=== PATIENT | male | born 1950 | race Caucasian/White ===

== ENCOUNTER 2018-12-31 01:31 | Outpatient (CLI) | payer MEDICARE, OTHER, SELFPAY ==
[2018-12-31 11:13] LABS: Abs Immature Grans 0.01 k/cumm (0.0-0.09); Absolute Basophil Count 0.02 k/cumm (0.0-0.2); Absolute Eosinophil Count 0.14 k/cumm (0.0-0.7); Absolute Monocyte Count 0.47 k/cumm (0.11-0.7); Absolute Neutrophil Count 2.89 k/cumm (1.2-6.7); Basophils % 0.3; Eosinophils % 2.4; HCT 42.3 % (40.0-50.0); HGB 13.9 g/dL (13.5-17.5); Immature Grans % 0.2; Lymphocytes % 38.4; Mean Corp. HGB Concentration 32.9 g/dL (32.0-36.0); Mean Corpuscular Volume 85.3 fL (80-95); Mean Platelet Volume 10.6 fL (8.0-11.0); Monocytes % 8.2; Neutrophils % 50.5; Platelet Count 199 x1000/uL (130-400); RBC 4.96 m/cumm (4.50-6.00); RBC Distribution Width 13.4 % (11.8-14.1); White Blood Cell Count 5.73 k/cumm (4.4-10.8)
[2018-12-31 11:26] LABS: ALT 43 U/L (12-78); AST 21 U/L (15-37); Albumin 3.9 g/dL (3.4-5.0); Alkaline Phosphatase 70 U/L (46-116); Anion Gap 5.8 mmol/L (3-11); BUN 20 mg/dL (7-18); Bilirubin, Total 0.3 mg/dL (0.2-1.0); CO2 32.2 mmol/L (21.0-32.0); CREATININE 0.88 mg/dL (0.70-1.30); Calcium 8.9 mg/dL (8.5-10.1); Chloride 105 mmol/L (98-107); Cholesterol 111 mg/dL (50-200); Glucose 101 mg/dL (70-100); HDL Cholesterol 52 mg/dL (40-60); LDL CHOLESTEROL 53 mg/dL (<100); Potassium 4.4 mmol/L (3.5-5.1); Sodium 143 mmol/L (136-145); Total Protein 6.7 g/dL (6.4-8.2); Triglyceride 47 mg/dL (30-150)
[2018-12-31 12:10] LABS: ESR 7 MM/HR (1-20)
[2018-12-31 21:09] LABS: T3,Free 3.6 pg/ml (2.8-5.3)
[2019-01-01 13:09] LABS: Albumin 62.7 % (55.8-66.1); Total Protein 6.6 g/dl (6.3-8.2)
== END 2018-12-31 01:51 ==
PROVIDERS: PCP Family Medicine; Visit Provider Family Medicine
DX: D36.9 Benign neoplasm, unspecified site (principal); E78.5 Hyperlipidemia, unspecified; F32.9 Major depressive disorder, single episode, unspecified; G62.9 Polyneuropathy, unspecified; E66.9 Obesity, unspecified; R20.2 Paresthesia of skin
CPT/HCPCS: 36415; 80053; 80061; 83721; 85652; 84165; 84443; 84481; 85025

== ENCOUNTER → 2019-02-15 08:11 | Outpatient (BNVA) | payer MEDICARE, OTHER, SELFPAY | PROVIDERS: PCP Family Medicine; Referring Provider Family Medicine; Visit Provider Psychiatry & Neurology Neurology | DX: G62.9 Polyneuropathy, unspecified (principal); G56.01 Carpal tunnel syndrome, right upper limb; R26.89 Other abnormalities of gait and mobility; G25.0 Essential tremor; R41.3 Other amnesia | CPT/HCPCS: 99214 ==

== ENCOUNTER → 2019-08-09 08:17 | Outpatient (BNVA) | payer MEDICARE, OTHER, SELFPAY | PROVIDERS: PCP Family Medicine; Referring Provider Family Medicine; Visit Provider Psychiatry & Neurology Neurology | DX: G56.01 Carpal tunnel syndrome, right upper limb (principal); G25.0 Essential tremor; G62.9 Polyneuropathy, unspecified; R41.3 Other amnesia | CPT/HCPCS: 99215 ==

== ENCOUNTER 2019-08-23 00:57 | Outpatient (CLI) | payer MEDICARE, OTHER, SELFPAY ==
--- NOTE | 2019-08-23 09:13 | DI.MRI_ITS ---
EXAM: MR BRAIN WO CLINICAL HISTORY: memory loss, R41.3. TECHNIQUE: Multiplanar multisequence MRI was performed. COMPARISON: No exams were available for comparison FINDINGS: The ventricles and sulci are consistent with the patient's age. No intracranial mass, acute midline shift or mass effect is identified. Diffusion-weighted images have a normal appearance. No acute in tracranial hemorrhage is present. The ventricles are intact. The basilar cisterns are patent. Ther e is a normal flow void in the [place]. The visualized paranasal sinuses are clear. IMPRESSION: No acute intracranial process.
== END 2019-08-23 01:17 ==
PROVIDERS: PCP Family Medicine; Visit Provider Psychiatry & Neurology Neurology
DX: R41.3 Other amnesia (principal)
CPT/HCPCS: 70551

== ENCOUNTER → 2019-09-16 09:32 | Outpatient (BNVA) | payer MEDICARE, OTHER, SELFPAY | PROVIDERS: PCP Family Medicine; Referring Provider Family Medicine; Visit Provider Student in an Organized Health Care Education/Training Program | DX: G56.01 Carpal tunnel syndrome, right upper limb (principal) | CPT/HCPCS: 99203; 99214 ==

== ENCOUNTER → 2019-10-19 08:51 | Outpatient (BNVA) | payer MEDICARE, OTHER, SELFPAY | PROVIDERS: PCP Family Medicine; Referring Provider Family Medicine; Visit Provider Psychiatry & Neurology Neurology | DX: G25.0 Essential tremor (principal); G62.9 Polyneuropathy, unspecified; G56.01 Carpal tunnel syndrome, right upper limb; R41.3 Other amnesia | CPT/HCPCS: 99214 ==

== ENCOUNTER 2019-10-27 06:09 | Day surgery (SDC) | payer MEDICARE, OTHER, SELFPAY ==
[2019-10-27 06:20] VITALS: BP 94/51; PULSE 55; TEMP 36.2; O2SAT 98
[2019-10-27] MEDS: Lactated Ringers 1,000 ML 80 ML IV (06:50)
--- NOTE | 2019-10-27 07:08 | W.PREOPHP ---
Date of service: 10/27/19 Time of Service: 07:09 Assessment and Plan Assessment and plan (1) Carpal tunnel syndrome of right wrist: Status: Chronic Assessment and plan: Mr. Longoria is a 69-year-old with recurrent carpal tunnel syndrome of the right side. He has had previous endoscopic release with marginal improvements. He has nerve next improvement carpal tunnel syndrome on the right side. At this point, I do think he would benefit from endoscopic carpal tunnel release. There is a high threshold for opening this given the previous surgery but given the duration of time since the last procedure I expect we should be able do this endoscopically. I did discuss the risk of the procedure to include bleeding, infection, pain, stiffness, damage nerves and vessels, recurrence, continued symptoms, need for repeat procedures peer despite these risks, he elects to proceed. He is in good health and has had no changes to his health history. History of Present Illness History of Present Illness Chief Complaint: Right Carpal Tunnel Syndrome Narrative: Mr. Longoria is a 69-year-old gentleman who has had persistent pain and numbness of his right hand. He has been seen previously in [place] in the over 1999's and had an endoscopic carpal tunnel release. This did not provide significant improvements. The symptoms have actually worsened over the past few years and nerve conduction studies proved carpal tunnel syndrome. He has had a trial of conservative options. He continues to have numbness and tingling of the thumb, index finger, middle finger. He has had no recent health changes. Review of Systems All systems reviewed & are unremarkable except as noted in HPI and below [facility] Medical History Allergic rhinitis Cubital tunnel syndrome on right (Acute 03/16/18) Depressive disorder (Acute 11/09/14) Essential tremor (Acute 01/28/18) Gastric ulcer (Acute 01/31/14) EGD 12/2013 Hyperlipidemia (Acute 12/08/14) Obesity (Acute 11/09/14) Obstructive sleep apnea (Acute 11/09/14) HAS C-PAP Osteoarthritis Peripheral polyneuropathy (Acute 01/28/18) Pilonidal cyst Tubular adenoma (Acute) 02/06/15 DR. MONGE Surgical History Appendectomy B/L ELBOW FX (~04/2013) BACK SURGERY (~2002) Colonoscopy - IV Sedation (02/09/18) 01/2016-Dr. Monge Tubular and tubulovillous adenomas Colonoscopy - MAC (02/09/18) Excision, Pilonidal Cyst (01/08/17) EYE SURGERY LEFT ANKLE SURGERY (~1987) Nasal septoplasty (~2006) Open Carpal Tunnel release (~2007) B/L RIGHT SHOULDER REPAIR (~05/2012) Tonsillectomy Tooth extraction GLAUCOMA LASER Family History Mother , 93 Depression Cancer Father Heart disease Prostate cancer Brother Essential hypertension Maternal Grandfather , 70 Heart disease Paternal Grandfather Heart disease Maternal Grandmother , 60 No problems noted. Paternal Grandmother , 76 Diabetes Brother Substance abuse Depression Social History Smoking/Tobacco Use Status: Former Tobacco Use Quit Date: 10/02/02 Tobacco: How many years used: 35 Quit status: has quit before Second Hand Exposure: Yes Alcohol Intake: former Drug use: Never Substance use type: does not use Caregiver/Support person: No Household members: significant other Housing: house Do you need help understanding health information?: Often current occupation: Retired . Pets and animals: No Sexually active: Yes Do you think of yourself as: straight/heterosexual Current gender identity: male What is your relationship status?: living with partner How often do you talk on the phone with friends or family?: three or more times per week How often do you get together with friends or relatives?: once per week How often do you attend temple or yarsani services?: decline to answer Do you belong to any clubs or organized social groups?: no Panel score (0-1 are the most socially isolated patients): 2 What type of physical activity do you participate in: decline to answer Duration: decline to answer Frequency: decline to answer Ramona/Denominational: Zoroastrianism Special ramona needs: No Seatbelt use: always 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 Do you feel safe at home: Yes Do you feel safe in your relationship?: Yes Meds Home Medications and Allergies Home Medications Medication Instructions Recorded Confirmed Type acetaminophen 500 mg PO Q6H PRN PRN 11/09/14 10/27/19 History docusate sodium 100 mg PO BID PRN tab-cap 11/09/14 10/27/19 History multivitamin 1 ea PO DAILY 11/09/14 10/27/19 History trazodone 300 mg PO HS tab-cap 11/17/14 10/27/19 History bupropion HCl 300 mg PO DAILY tab-cap 10/12/15 10/27/19 History liothyronine 10 mcg PO DAILY tab-cap 10/12/15 10/27/19 History fluticasone propionate 50 mcg NS DAILY PRN spray 10/30/15 10/27/19 History cholecalciferol (vitamin D3) 5,000 unit PO DAILY 12/02/16 10/27/19 History sertraline 100 mg PO DAILY tab-cap 01/28/18 10/27/19 History cromolyn 5.2 mg/spray (4 %) nasal 1 spray IBETH TID #26 ml 12/29/18 10/27/19 Rx spray loratadine 10 mg tablet 10 mg PO DAILY #90 tab 01/13/19 10/27/19 Rx memantine 10 mg tablet 10 mg PO BID #180 tab 10/19/19 10/27/19 Rx simvastatin 20 mg PO HS 10/22/19 10/27/19 History Allergies Allergy/AdvReac Type Severity Reaction Status Date / Time No Known Allergies Allergy Verified 10/27/19 06:16 Exam Const General: cooperative, healthy appearing, comfortable and no acute distress Nutritional Appearance: average body habitus Orientation: alert, awake and oriented x3 Resp Effort & Inspection: normal respiratory effort Auscultation: clear to auscultation bilaterally Cardio Rate: regular rate Rhythm: regular rhythm Extrem Other: Positive Julita's and positive Tinel's as well as a positive Phalen's test. Decrease in station the median nerve distribution. Results Last Vital Signs Temp 36.2 C L 10/27/19 06:20 Pulse 55 L 10/27/19 06:20 BP 94/51 L 10/27/19 06:20 Pulse Ox 98 10/27/19 06:20
--- NOTE | 2019-10-27 07:21 | PDOC.DSDIS_ITS ---
Discharge Plan Disposition Patient Disposition: HOME Condition: Good Discharge Details Reason For Visit: R Carpal Tunnel Syndrome Attending Provider: Sam Horta Primary Care Provider: Sarwat Horton [place] Meds and New Rx's Prescriptions: New hydrocodone-acetaminophen 5-325 mg tablet 1 tab PO Q8H PRN PRN (Reason: pain) Qty: 6 RF: 0 acetaminophen 500 mg tablet 500 mg PO Q6H PRN PRN (Reason: pain) Qty: 40 RF: 3 ibuprofen 600 mg tablet 600 mg PO TID PRNQty: 60 RF: 3 Continued loratadine 10 mg tablet 10 mg PO DAILY Qty: 90 RF: 3 cromolyn [Nasalcrom] 5.2 mg/spray (4 %) spray,non-aerosol 1 spray IBETH TID Qty: 26 RF: 0 memantine 10 mg tablet 10 mg PO BID Qty: 180 RF: 3 docusate sodium 100 MG capsule 100 mg PO BID PRNRF: 0 multivitamin 1 EACH capsule 1 ea PO DAILY RF: 0 trazodone 100 MG tablet 300 mg PO HS RF: 0 liothyronine 5 MCG tablet 10 mcg PO DAILY RF: 0 bupropion HCl 300 MG tablet extended release 24 hr 300 mg PO DAILY RF: 0 cholecalciferol (vitamin D3) 5,000 UNIT capsule 5,000 unit PO DAILY RF: 0 sertraline 50 MG tablet 100 mg PO DAILY RF: 0 simvastatin 20 mg tablet 20 mg PO HS RF: 0 Discontinued acetaminophen 500 MG tablet 500 mg PO Q6H PRN PRNRF: 0 No Action fluticasone propionate 16 GM spray,suspension 50 mcg NS DAILY PRN RF: 0 Discharge Instructions Stand Alone Forms: Rula Garces Tunnel Release Referrals: Sam Horta MD [ [facility] STAFF PHYSICIAN] - Equipment/Supplies: Sling Activity:: Elevate Remove Dressings/Wound Care:: 72 hours Shower/Bathe:: 72 hours Diet:: As Tolerated Discharge Orders Discharge Orders: Discharge Order (Routine); Ordered 10/27/19 Ordered By: Sam Horta DS: Diagnosis Discharge Diagnosis (1) Carpal tunnel syndrome of right wrist: Status: Chronic
[2019-10-27] MEDS: ceFAZolin 2 GM/50 ML BAG IVPB (07:24)
[2019-10-27] MEDS: Sodium Bicarbonate 50 MEQ/50 ML VIAL (07:32)
[2019-10-27 08:25] VITALS: BP 86/57; PULSE 57; RESP 16; TEMP 36.6; O2SAT 95
--- NOTE | 2019-10-28 14:45 | W.PM.OP ---
Date of service: 10/27/19 Time of Service: 08:09 Operative Note Operative Note DATE OF PROCEDURE: 10/27/19 PRE-OP DIAGNOSIS: Recurrent Right Carpal Tunnel Syndrome POST-OP DIAGNOSIS: same PROCEDURE: Right Endoscopic Carpal Tunnel Release SURGEON: Sam Horta ANESTHESIA: GETGwendolyn ESTIMATED BLOOD LOSS: 0 PATHOLOGY: none sent TOURNIQUET TIME: 8 COMPLICATIONS: None Patient was transported to: same day Patient's condition: stable Indications: I have seen Ppio in clinic for symptoms of carpal tunnel syndrome. The numbness, tingling, and pain limited function. Clinical exam findings with nerve conduction tests confirmed the diagnosis of carpal tunnel syndrome. Nonoperative measures such as bracing, time, activity modifications had been tried but disability and pain persisted. I discussed carpal tunnel release with the patient. I reviewed the risks of the procedure to include, but not limited to, bleeding, infection, pain, stiffness, incomplete release, damage to nerves or vessels, persistent numbness, recurrence. Despite these risks, the patient elected to proceed. Findings: There was tightened carpal tunnel. This was dilated and released successfully with the endoscopic with increased space within the tunnel. The antebrachial fascia was released proximally freeing the median nerve at the wrist. Procedure Description: Pipo was greeted in the preoperative holding area where the correct side was identified and marked. The consent was reviewed with the patient and signed. The history and physical was updated. All questions were answered. He was taken back to the operating room. The patient was placed into the supine position on the operating room table with the right arm on an arm board. A nonsterile tourniquet was placed high onto the arm. All bony prominences were well padded. Prophylactic antibiotics in the form of Cefazolin were administered. The right arm was then prepped with Chloraprep and draped in a standard fashion with stockinette and extremity drape. A timeout to confirm correct identity, side and site, procedure, allergies, anesthesia, and medical concerns was performed. The surgical site was marked in the volar wrist creases in line with the radial border of the fourth ray. This area was anesthetized with approximately 6cc of 1% Lidocaine. The limb was then exsanguinated with an Esmarch. The skin was incised with a 15 blade, approximately 1cm. The skin only was cut and the deeper tissue was dissected bluntly with a tenotomy scissor, avoiding passing nerve and venous structures. The fascia was penetrated and opened bluntly. A two-prong skin hook was placed under this proximal fascial edge. A series of hamate finders were used to identify and dilate the carpal tunnel. Synovial elevator was used to free synovial attachments to the underside of the transverse carpal ligament. My thumb was kept in the palm to марина the distal extent of the carpal tunnel and correctly position the hand. The Microaire endoscope was inserted without difficulty and without resistance. Excellent visualization showed horizontally running fibers of the transverse carpal ligament (TCL). The distal extent of the TCL was visualized and the end of the scope palpated with the thumb. The blade was elevated and withdrawn from distal to proximal. The TCL was split into two flaps. The endoscope was reinserted to confirm complete release and any remnant ligament was incised. The scope was withdrawn and the proximal aspect of the carpal tunnel was grossly inspected and appeared release with the median nerve visible. The antebrachial fascia at the level of the wrist was then freed from the overlying skin and then the underlying median nerve with blunt dissection. This was transected longitudinally for about 3cm proximal to the wrist incision. The wound was then irrigated with easy flow of irrigant distally and proximally. The incision was closed with a single 4-0 Nylon suture. The wound was dressed with Xeroform, Gauze, Kerlix and Kole. The tourniquet was deflated with the initial dressing and held with some pressure. Blood flow returned easily to all digits with capillary refill less than 2 seconds. The patient tolerated the procedure well and was returned to the Same Day Surgery area in a stable condition suffering no known complication.
== END 2019-10-27 08:45 | disposition home or self-care (01) ==
PROVIDERS: PCP Family Medicine; Visit Provider Student in an Organized Health Care Education/Training Program
PROC: 01N54ZZ Release Median Nerve, Percutaneous Endoscopic Approach (ICD-10-PCS; CPT 29848; principal; 2019-10-27 07:30)
DX: G56.01 Carpal tunnel syndrome, right upper limb (principal)
CPT/HCPCS: 29848; NC; J0690; J2405; L3650

== ENCOUNTER → 2019-11-05 10:49 | Outpatient (BNVA) | payer MEDICARE, OTHER, SELFPAY | PROVIDERS: PCP Family Medicine; Referring Provider Family Medicine; Visit Provider Student in an Organized Health Care Education/Training Program | DX: Z47.89 Encounter for other orthopedic aftercare (principal); G56.01 Carpal tunnel syndrome, right upper limb ==

== ENCOUNTER 2020-02-11 09:42 | Outpatient (CLI) | payer MEDICARE, OTHER, SELFPAY ==
--- NOTE | 2020-02-11 09:15 | DI.RAD_ITS ---
EXAM: XR HIP LT COMPLETE AP PELVIS CLINICAL HISTORY: left hip pain. TECHNIQUE: 2D digital imaging was performed. COMPARISON: No exams were available for comparison FINDINGS: The left hip is well maintained. No significant arthritic changes are present. Right hip is unremar kable. Mild degenerative changes are seen at lumbosacral junction. The sacroiliac joints and symphy sis pubis are unremarkable. The bones are normally mineralized. The soft tissues are unremarkable. IMPRESSION: Unremarkable radiographs of the left hip. DATA REPOSITORY: RADIATION DOSE DELIVERED:
== END 2020-02-11 10:02 ==
PROVIDERS: PCP Family Medicine; Referring Provider Family Medicine; Visit Provider Student in an Organized Health Care Education/Training Program
DX: M25.552 Pain in left hip (principal); M70.62 Trochanteric bursitis, left hip; G56.01 Carpal tunnel syndrome, right upper limb; M25.511 Pain in right shoulder; M75.81 Other shoulder lesions, right shoulder
CPT/HCPCS: 99213; 99214; 73502

== ENCOUNTER → 2020-02-16 08:13 | Outpatient (BNVA) | payer MEDICARE, OTHER, SELFPAY | PROVIDERS: PCP Family Medicine; Referring Provider Family Medicine; Visit Provider Psychiatry & Neurology Neurology | DX: G25.0 Essential tremor (principal); G62.9 Polyneuropathy, unspecified; R41.3 Other amnesia | CPT/HCPCS: 99213 ==

== ENCOUNTER 2020-03-08 03:23 | Outpatient (CLI) | payer MEDICARE, OTHER, SELFPAY ==
[2020-03-08 13:02] LABS: ALT 33 U/L (16-63); AST 22 U/L (15-37); Albumin 3.8 g/dL (3.4-5.0); Alkaline Phosphatase 67 U/L (46-116); Anion Gap 7.3 mmol/L (3-11); BUN 20 mg/dL (7-18); Bilirubin, Total 0.4 mg/dL (0.2-1.0); CO2 29.7 mmol/L (21.0-32.0); CREATININE 0.94 mg/dL (0.70-1.30); Calcium 8.9 mg/dL (8.5-10.1); Calculated LDL 69 mg/dL (<100); Chloride 107 mmol/L (98-107); Cholesterol 138 mg/dL (<200); Glucose 103 mg/dL (74-106); HDL Cholesterol 52 mg/dL (40-60); Potassium 4.2 mmol/L (3.5-5.1); Sodium 144 mmol/L (136-145); TSH (W/Ref FT4) 1.49 uIU/mL (0.36-3.74); Total Protein 6.5 g/dL (6.4-8.2); Triglyceride 86 mg/dL (<150)
[2020-03-09 09:06] LABS: PSA, Screening 0.6 ng/mL (0.0-6.5)
== END 2020-03-08 03:43 ==
PROVIDERS: PCP Family Medicine; Visit Provider Family Medicine
DX: E78.5 Hyperlipidemia, unspecified (principal); R53.83 Other fatigue; F32.9 Major depressive disorder, single episode, unspecified; Z12.5 Encounter for screening for malignant neoplasm of prostate; Z80.42 Family history of malignant neoplasm of prostate
CPT/HCPCS: 36415; 80053; 80061; 84153; 84443

== ENCOUNTER 2020-04-07 01:38 | Outpatient (CLI) | payer MEDICARE, OTHER, SELFPAY ==
[2020-04-10 09:24] LABS: PSA, Screening 0.5 ng/mL (0.0-6.5)
== END 2020-04-07 01:58 ==
PROVIDERS: PCP Family Medicine; Visit Provider Family Medicine
DX: Z12.5 Encounter for screening for malignant neoplasm of prostate (principal)
CPT/HCPCS: 36415; 84153

== ENCOUNTER → 2020-08-16 08:09 | Outpatient (BNVA) | payer MEDICARE, OTHER, SELFPAY | PROVIDERS: PCP Family Medicine; Referring Provider Family Medicine; Visit Provider Psychiatry & Neurology Neurology | DX: R41.3 Other amnesia (principal); G25.0 Essential tremor; G62.9 Polyneuropathy, unspecified | CPT/HCPCS: 99213; 99441 ==

== ENCOUNTER → 2021-02-15 08:33 | Outpatient (BNVA) | payer MEDICARE, OTHER, SELFPAY | PROVIDERS: PCP Nurse Practitioner Family; Referring Provider Family Medicine; Visit Provider Psychiatry & Neurology Neurology | DX: R41.3 Other amnesia (principal); G25.0 Essential tremor; G62.9 Polyneuropathy, unspecified; G47.33 Obstructive sleep apnea (adult) (pediatric) | CPT/HCPCS: 99214 ==

== ENCOUNTER 2021-03-20 08:42 | Outpatient (CLI) | payer MEDICARE, OTHER, SELFPAY ==
[2021-03-20 13:05] LABS: Hemoglobin A1C 5.6 % (<5.7)
[2021-03-20 13:10] LABS: ALT 43 U/L (16-63); AST 28 U/L (15-37); Alkaline Phosphatase 70 U/L (46-116); Anion Gap 8.4 mmol/L (3-11); BUN 24 mg/dL (7-18); Bilirubin, Total 0.5 mg/dL (0.2-1.0); CO2 30.6 mmol/L (21.0-32.0); CREATININE 1.1 mg/dL (0.70-1.30); Calcium 9.4 mg/dL (8.5-10.1); Calculated LDL 76 mg/dL (<100); Chloride 106 mmol/L (98-107); Cholesterol 149 mg/dL (<200); Glucose 102 mg/dL (74-106); HDL Cholesterol 44 mg/dL (40-60); Potassium 4.8 mmol/L (3.5-5.1); Sodium 145 mmol/L (136-145); Total Protein 6.7 g/dL (6.4-8.2); Triglyceride 146 mg/dL (<150)
[2021-03-20 22:43] LABS: PSA, Screening 1.2 ng/mL (0.0-6.5)
== END 2021-03-20 08:43 | disposition home or self-care (01) ==
LOC: LOS 08:48
PROVIDERS: Family Medicine; PCP Nurse Practitioner Family; Visit Provider Nurse Practitioner Family
DX: R73.9 Hyperglycemia, unspecified (principal); E66.9 Obesity, unspecified; Z12.5 Encounter for screening for malignant neoplasm of prostate; Z80.42 Family history of malignant neoplasm of prostate
CPT/HCPCS: 36415; 80053; 80061; 84153; 83036

== ENCOUNTER → 2021-03-23 09:00 | Outpatient (BNVA) | payer MEDICARE, OTHER, SELFPAY | PROVIDERS: PCP Nurse Practitioner Family; Referring Provider Nurse Practitioner Family; Visit Provider Student in an Organized Health Care Education/Training Program | DX: M70.62 Trochanteric bursitis, left hip (principal); M25.552 Pain in left hip | CPT/HCPCS: 99213 ==

== ENCOUNTER 2021-04-11 02:17 | Outpatient (CLI) | payer MEDICARE, OTHER, SELFPAY ==
--- NOTE | 2021-04-11 06:45 | DI.MRI_ITS ---
Exam(s) MR LOWER JOINT LT WO EXAM: MR LOWER JOINT LT WO CLINICAL HISTORY: LT HIP PAIN, TROCHANTERIC BURSITIS, M25.552,M70.62 TECHNIQUE: Multiplanar multisequence MRI of Pelvis was performed COMPARISON: CR XR HIP LT COMPLETE AP PELVIS from 02/11/2020 CR XR HIP LT COMPLETE AP PELVIS from 02/11/2020 FINDINGS: Bones: There is no fracture or contusion pattern. No significant joint effusion is present. No bone marrow edema is seen. The SI joints and symphysis pubis are well maintained. Musculotendinous structures: Musculotendinous structures demonstrate no abnormality. Intrapelvic str uctures demonstrate no significant abnormality. IMPRESSION: Normal MRI examination the pelvis and left hip. No evidence of trochanteric bursitis.. DATA REPOSITORY:
== END 2021-04-11 02:37 ==
PROVIDERS: PCP Nurse Practitioner Family; Visit Provider Student in an Organized Health Care Education/Training Program
DX: M25.552 Pain in left hip (principal)
CPT/HCPCS: 73721

== ENCOUNTER → 2021-04-12 12:57 | Outpatient (BNVA) | payer MEDICARE, OTHER, SELFPAY | PROVIDERS: PCP Nurse Practitioner Family; Referring Provider Nurse Practitioner Family | DX: Z01.818 Encounter for other preprocedural examination (principal); M76.892 Other specified enthesopathies of left lower limb, excluding foot; M70.62 Trochanteric bursitis, left hip ==

== ENCOUNTER 2021-04-16 02:46 | Outpatient (CLI) | payer MEDICARE, OTHER, SELFPAY ==
[2021-04-16 12:39] LABS: Source Nasal/Nares
[2021-04-16 15:35] LABS: COVID-19 PCR Negative (Negative)
== END 2021-04-16 02:47 | disposition home or self-care (01) ==
LOC: LBO 02:47
PROVIDERS: PCP Nurse Practitioner Family; Visit Provider Student in an Organized Health Care Education/Training Program
DX: Z20.822 Contact with and (suspected) exposure to COVID-19 (principal); Z01.818 Encounter for other preprocedural examination
CPT/HCPCS: 87635

== ENCOUNTER 2021-04-17 08:43 | Day surgery (SDC) | payer MEDICARE, OTHER, SELFPAY ==
[2021-04-17 08:56] VITALS: BP 127/52; PULSE 65; RESP 16; TEMP 36.4; O2SAT 95
[2021-04-17] MEDS: Lactated Ringers 1,000 ML 80 ML IV (09:28)
[2021-04-17] MEDS: Acetaminophen 500 MG TAB 1000 MG PO (09:29)
[2021-04-17] MEDS: Celecoxib 200 MG CAP 400 MG PO (09:29)
--- NOTE | 2021-04-17 09:29 | W.ANESPRE ---
General Info Date of Service Date Performed: 04/17/21 Height: 6 ft 1 in Weight: 118.6 kg Body Mass Index (BMI): 34.4 Surgical Procedure: Operation Date: 04/17/21 10:55 Proposed Procedures Side Surgeon p Left hip debridement with abductor tendon repair Left Sam Horta MD Meds Allergies and Home Medications Allergies Allergy/AdvReac Type Severity Reaction Status Date / Time No Known Allergies Allergy Verified 04/17/21 09:08 Home Medication Medication Instructions Recorded docusate sodium 100 mg PO BID PRN tab-cap 11/09/14 multivitamin 1 ea PO DAILY 11/09/14 trazodone 300 mg PO HS tab-cap 11/17/14 bupropion HCl 300 mg PO DAILY tab-cap 10/12/15 liothyronine 10 mcg PO DAILY tab-cap 10/12/15 fluticasone propionate 50 mcg NS DAILY PRN spray 10/30/15 sertraline 100 mg PO DAILY tab-cap 01/28/18 simvastatin 20 mg PO HS 10/22/19 memantine 10 mg tablet 10 mg PO BID #180 tab 12/11/20 fexofenadine 180 mg tablet 180 mg PO DAILY 03/12/21 meloxicam 15 mg PO DAILY 04/13/21 acetaminophen 1,000 mg PO Q8H PRN PRN #90 cap 04/17/21 ibuprofen 600 mg PO TID PRN #30 tab 04/17/21 oxycodone 5 mg PO Q6H PRN #8 tab MDD 15mg 04/17/21 Current Visit Medications: Current Medications Generic Name Dose Route Start Last Admin Trade Name Cedricq PRN Reason Stop Dose Admin Acetaminophen 1,000 mg 04/17/21 06:00 Acetaminophen 500 Mg Tab PO 04/17/21 16:00 PREOP KEVEN Celecoxib 400 mg 04/17/21 06:00 Celecoxib 200 Mg Cap PO 04/17/21 16:00 PREOP KEVEN Ringer's Solution 1,000 mls @ 80 mls/hr 04/17/21 06:00 04/17/21 09:28 IV 05/16/21 23:59 80 mls/hr INFUSION KEVEN Administration Cefazolin Sodium 3,000 mg/ 100 mls @ 200 mls/hr 04/17/21 06:00 Sodium Chloride IVPB 04/17/21 16:00 PREOP KEVEN Tranexamic Acid 1,000 mg/ 60 mls @ 360 mls/hr 04/17/21 06:00 Sodium Chloride IV 04/17/21 16:00 PREOP KEVEN IV Miscellaneous Supplies 1 each 04/17/21 06:00 Iv Access IV 05/16/21 23:59 DIRECTED KEVEN Sodium Chloride 0 ml 04/17/21 06:00 Normal Saline Flush 10 Ml Syr IV 05/16/21 23:59 PRN PRN Sodium Chloride 0 ml 04/17/21 06:00 Normal Saline 10 Ml Vial IJ 05/16/21 23:59 DIRECTED PRN Sterile Water 0 ml 04/17/21 06:00 Water,Injection,Sterile 10 Ml Vial IJ 05/16/21 23:59 DIRECTED PRN PFSH Active Problems Active Problems: Problem Status Onset Code Tendinitis involving left hip abductors M76.892 Glucose intolerance E74.39 Right rotator cuff tendonitis M75.81 Memory loss R41.3 Allergic rhinitis 11/09/14 J30.9 Cubital tunnel syndrome on right 03/16/18 G56.21 Depressive disorder 11/09/14 F32.9 Essential tremor 01/28/18 G25.0 Gastric ulcer 01/31/14 K25.9 Hyperlipidemia 12/08/14 E78.5 Left hip pain 11/22/15 M25.552 Obesity 11/09/14 E66.9 Obstructive sleep apnea 11/09/14 G47.33 Orthostatic hypotension 01/28/18 I95.1 Peripheral polyneuropathy 01/28/18 G62.9 Tingling of right upper extremity 01/28/18 R20.2 Trochanteric bursitis, left hip 06/17/16 M70.62 Trochanteric bursitis, right hip 06/17/16 M70.61 Tubular adenoma D36.9 Medical History Medical History Allergic rhinitis Cubital tunnel syndrome on right (03/16/18) Depressive disorder (11/09/14) Essential tremor (01/28/18) Gastric ulcer (01/31/14) EGD 12/2013 Glucose intolerance Hyperlipidemia (12/08/14) Obesity (11/09/14) Obstructive sleep apnea (11/09/14) HAS C-PAP Osteoarthritis Peripheral polyneuropathy (01/28/18) Pilonidal cyst Right rotator cuff tendonitis Tubular adenoma 02/06/15 DR. MONGE Surgical History Surgical History Appendectomy B/L ELBOW FX (~04/2013) BACK SURGERY (~2002) Colonoscopy - IV Sedation (02/09/18) 01/2016-Dr. Monge Tubular and tubulovillous adenomas Colonoscopy - MAC (02/09/18) Excision, Pilonidal Cyst (01/08/17) EYE SURGERY LEFT ANKLE SURGERY (~1987) Nasal septoplasty (~2006) Open Carpal Tunnel release (~2007) B/L RIGHT SHOULDER REPAIR (~05/2012) Tonsillectomy Tooth extraction GLAUCOMA LASER Tobacco Smoking/Tobacco Use Status: Former Tobacco Use Tobacco: How many years used: 35 Passive smoking exposure: Yes Second hand exposure: Yes Alcohol Alcohol Intake: former Substance Use Substance use: Never Substance use type: does not use Vital Signs and Lab Results Vital Signs Most Recent Vital Signs in EMR: Most Recent Vital Signs Temp Pulse Resp BP Pulse Ox 36.4 C L 65 16 127/52 L 95 04/17/21 08:56 04/17/21 08:56 04/17/21 08:56 04/17/21 08:56 04/17/21 08:56 Lab Results Blood Type / Crossmatch: No Data to Display Complete Blood Count: No Data to Display Complete Metabolic Panel: Sodium Level 145 mmol/L (136-145) 03/20/21 08:50 03/20/21 Potassium Level 4.8 mmol/L (3.5-5.1) 03/20/21 08:50 03/20/21 Chloride Level 106 mmol/L (98-107) 03/20/21 08:50 03/20/21 Carbon Dioxide Level 30.6 mmol/L (21.0-32.0) 03/20/21 08:50 03/20/21 Blood Urea Nitrogen 24 mg/dL (7-18) H 03/20/21 08:50 03/20/21 Creatinine 1.1 mg/dL (0.70-1.30) 03/20/21 08:50 03/20/21 Estimated GFR/1.73 m2 >= 60.00 (mL/min/1.73m2) 03/20/21 08:50 03/20/21 Calcium Level 9.4 mg/dL (8.5-10.1) 03/20/21 08:50 03/20/21 Albumin 4.0 g/dL (3.4-5.0) 03/20/21 08:50 03/20/21 Glucose Level 102 mg/dL (74-106) 03/20/21 08:50 03/20/21 Hemoglobin A1c 5.6 % (<5.7) 03/20/21 09:00 03/20/21 Liver Function Panel: Alanine Aminotransferase (ALT/SGPT) 43 U/L (16-63) 03/20/21 08:50 03/20/21 Aspartate Amino Transf (AST/SGOT) 28 U/L (15-37) 03/20/21 08:50 03/20/21 Coagulation Panel: No Data to Display Cardiac Panel: No Data to Display Arterial Blood Gas: No Data to Display Venous Blood Gas: No Data to Display Pancreas Panel: No Data to Display Thyroid Panel: No Data to Display Infectious Disease: Coronavirus (COVID-19)(PCR) Negative (Negative) 04/16/21 09:10 04/16/21 Coronavirus 2019 Source Nasal/Nares 04/16/21 09:10 04/16/21 Blood Cultures: No Data to Display Toxicology Panel: No Data to Display Anesthesia Assessment and Plan Anesthesia History Personal History: No History of Anesthesia Complications Family History: No Family History of Anesthesia Complications Exercise Tolerance Exercise Tolerance: Metabolic Equivalents>4 Pertinent Negatives Pertinent Negatives: No Symptoms of GERD, No Major Cardiovascular Symptoms or Complaints, No Major Pulmonary Symptoms or Complaints (Former smoker ) and No History of CVA/TIA Cardiac & Pulmonary Exam Cardiac Exam: Normal S1/S2 Heart Sounds Pulmonary Exam: Clear Bilateral Breath Sounds Airway Exam Known Difficult Airway: No Mallampati Class: 1 Mouth Opening: Normal (> 3cm) Thyromental Distance: Greater than 3 cm Neck Range of Motion: Full ROM Neck Circumference: Normal Teeth Condition: Removable Dentures/Plates Upper and Removable Dentures/Plates Lower ASA Classification ASA Score: ASA 2 Emergency Case?: No NPO Status NPO Status: NPO Clears >2 hours, Solids >8 hours Anesthesia Plan Resuscitation Status: Full Code Anesthesia Technique: Spinal Anesthesia Airway Planned: Natural Airway Monitors Used: Standard Monitors
--- NOTE | 2021-04-17 10:05 | W.PM.DSUDISC ---
Discharge Plan Disposition Patient Disposition: HOME Condition: Good Discharge Details Reason For Visit: IT band release Attending Provider: Sam Horta Primary Care Provider: Saurabh Tejeda Home Meds and New Rx's Prescriptions: New ibuprofen 600 mg tablet 600 mg PO TID PRN (Reason: pain) Qty: 30 RF: 0 acetaminophen 500 mg capsule 1,000 mg PO Q8H PRN PRNQty: 90 RF: 0 oxycodone 5 mg tablet 5 mg PO Q6H MDD 15mg PRN (Reason: pain) Qty: 8 RF: 0 Continued fexofenadine [Allergy Relief (fexofenadine)] 180 mg tablet 180 mg PO DAILY RF: 0 docusate sodium 100 MG capsule 100 mg PO BID PRNRF: 0 multivitamin 1 EACH capsule 1 ea PO DAILY RF: 0 trazodone 100 MG tablet 300 mg PO HS RF: 0 liothyronine 5 MCG tablet 10 mcg PO DAILY RF: 0 bupropion HCl 300 MG tablet extended release 24 hr 300 mg PO DAILY RF: 0 fluticasone propionate 16 GM spray,suspension 50 mcg NS DAILY PRN RF: 0 sertraline 50 MG tablet 100 mg PO DAILY RF: 0 memantine 10 mg tablet 10 mg PO BID Qty: 180 RF: 3 simvastatin 20 mg tablet 20 mg PO HS RF: 0 meloxicam 15 mg Tablet 15 mg PO DAILY RF: 0 Discontinued acetaminophen 500 mg tablet 500 mg PO Q6H PRN PRN (Reason: pain) Qty: 40 RF: 3 ibuprofen 600 mg tablet 600 mg PO TID PRNQty: 60 RF: 3 Discharge Instructions Additional Instructions: Bubba Butta Discharge Instructions Activity: You may move and walk as tolerated but always use two crutches or a walker until instructed otherwise. You should try to take short walks a few times a day. You have no restrictions on movement or positioning, but do not try to force what you do. You will find some stiffness and weakness. Do not try to strengthen this too early, continue to practice walking. - Outpatient physical therapy can be helpful to help return you to a normal gait and improve your flexibility and strength. This can start around 2 weeks. For some patients, it?s not necessary. Usually this is determined at the time of discharge or at the first post-operative visit. Dressing: Keep the surgical dressing in place for at least one week. After the first week it may be removed and replace with light gauze and tape or nothing. It may get wet after 3 days but avoid soaking the dressing. If it gets wet, just lightly pat dry. Medications: - You should take Tylenol and an anti-inflammatory ibuprofen as your primary pain control medications - You have been prescribed a stronger pain medication oxycodone for breakthrough pain, take as needed as prescribed. - If you have constipation you should take Colace or Miralax (both [id number]). It takes most people 3-4 days to have a bowel movement. Follow-up: 2 weeks Referrals: Sam Horta MD [ [facility] STAFF PHYSICIAN] - Equipment/Supplies: Partial Weight Bearing Crutches Activity:: Activity as Tolerated Shower/Bathe:: 72 hours Diet:: As Tolerated Discharge Orders Discharge Orders: Discharge Order (Routine); Ordered 04/17/21 Ordered By: Archie Cruz DS: Diagnosis Discharge Diagnosis (1) Trochanteric bursitis, left hip: Status: Acute
[2021-04-17 10:25] VITALS: BMI 34.4
[2021-04-17] MEDS: ceFAZolin 3,000 MG in Normal Saline 100 ML 200 MG IVPB (10:55)
[2021-04-17] MEDS: Bupivacaine 0.25% Pres-Free 30 ML VIAL (11:16)
[2021-04-17] MEDS: Ketorolac 30 MG/ML VIAL (11:17)
[2021-04-17 11:47] VITALS: BP 88/55; PULSE 56; RESP 12; TEMP 36.1; O2SAT 95
[2021-04-17 11:52] VITALS: BP 97/57; PULSE 55; RESP 17; TEMP 36.1; O2SAT 95
[2021-04-17 11:57] VITALS: BP 101/58; PULSE 52; RESP 14; TEMP 36.1; O2SAT 95
[2021-04-17 12:12] VITALS: BP 103/65; PULSE 56; RESP 12; TEMP 36.1; O2SAT 94
[2021-04-17 13:13] VITALS: BP 119/72; PULSE 58; RESP 18; TEMP 36.3; O2SAT 97
--- NOTE | 2021-04-17 14:06 | W.PM.OP ---
Date of service: 04/17/21 Time of Service: 12:06 Operative Note Operative Note DATE OF PROCEDURE: 04/17/21 PRE-OP DIAGNOSIS: Recalcitrant Trochanteric Bursitis, LEFT POST-OP DIAGNOSIS: same PROCEDURE: Open Debridement/Excision of LEFT Trochanteric Bursa and Iliotibial Band Lengthening SURGEON: Sam Horta RESIDENTIAL ROOFER: Archie Cruz ANESTHESIA TYPE: Spinal Refer to Anesthesia Record ESTIMATED BLOOD LOSS: 50 PATHOLOGY: none sent TOURNIQUET TIME: 0 COMPLICATIONS: None Patient was transported to: PACU Patient's condition: stable Indications: Ezio is a 70 year old who I have seen for recurrent symptoms of lateral hip pain. A diagnosis of trochanteric bursitis was made. Conservative treatment options were employed first. However, pain continued. After failure of conservative treatment options, I recommended surgical intervention. I reviewed the technical details of the surgery. I reviewed the risk of the surgery to include bleeding, infection, pain, stiffness, damage to nerves and vessels, damage to muscles and tendons, blood clot. Despite these risks, the patient desired to proceed. Findings: The iliotibial band was significantly tight. The bursa was inflamed and excised and debrided. Iliotibial band was lengthened with a cruciate style tenotomy. Procedure Description: Ezio was greeted in the preoperative holding area. The identity was confirmed with the correct site and side. The consent was reviewed with the patient and signed. History and physical was updated. The patient was taken back to the operating room. A general anesthetic was administered. The patient was then positioned into the right lateral decubitus position for access to the left hip. All bony prominences well-padded. The left hip was prepped with ChloraPrep and draped in a standard fashion. Prophylactic antibiotics in the form of Cefazolin were administered. A timeout was performed for safe surgery. An approximately 10 cm incision was made overlying the posterior lateral hip. This was centered over the vastus ridge extending just proximal to the tip of the greater trochanter. The skin was incised sharply. Bleeding was stopped with electrocautery. The iliotibial band was identified and cleared for better visualization. It was noted to be quite taut against the lateral femur. The iliotibial band was then incised longitudinally extending into the gluteus fascia and extending distally along the IT band. This was split bluntly and a Charnley retractor was inserted. We had excellent visualization of the lateral femur and the trochanteric bursa. There was notable bursitis with an enlarged and inflamed bursa. This was excised sharply with electrocautery and remnants debrided with a rongeur. Once this was fully removed we had excellent visualization of the insertion of the abductor tendons. They were inspected both visually and by palpation on both the lateral and medial surfaces. There is no notable tearing of the abductor tendons. The deep structures were then thoroughly irrigated. The deep tissues were injected with a mixture of 0.5% bupivacaine and 20 cc of Exparel. The iliotibial band was then closed with a #1 Vicryl. Once the longitudinal split was closed completely the point of maximal tightness was incised transversely. This was done between sutures allowing for some the longitudinal split open as well creating a anu shaped tenotomy for lengthening of about 1-1.5cm. Once again the deep tissues and iliotibial band were injected with the remainder of the bupivacaine Exparel cocktail. The wound was thoroughly irrigated. The deep tissues were closed with 0 Vicryl followed by 2-0 Vicryl. The skin was closed with a 4-0 Monocryl in a running subcuticular fashion which was reinforced with skin glue and Steri-Strips. The wound was dressed with Mepilex silver dressing. At the end of the case all counts are correct. The patient was transitioned back into the supine position. There were no notable complications. The patient was transferred to the PACU in stable condition.
--- NOTE | 2021-04-18 14:36 | W.ANESPOSTOP ---
Postoperative Evaluation Date, Time and Location Date Performed: 04/18/21 Time Performed: 14:36 Patient Location: PACU Vital Signs Most Recent Imported Vital Signs: Most Recent Vital Signs Temp Pulse Resp BP Pulse Ox 36.3 C L 58 L 18 119/72 97 04/17/21 13:13 04/17/21 13:13 04/17/21 13:13 04/17/21 13:13 04/17/21 13:13 Pain Score Most Recent Pain Score: Most Recent Pain Score Pain Level 0 04/17/21 13:13 Assessment Mental Status: Awake (Alert & Oriented to Patient Baseline) Airway and Respiratory Function: Patent airway with normal (patient baseline) respiratory exam Cardiovascular Function: Hemodynamically Stable Hydration Status: Adequately Hydrated Nausea & Vomiting: No Nausea or Vomiting Pain: Pt. Denies Any Pain Peripheral Nerve Block: Patient did not receive a nerve block
== END 2021-04-17 13:58 | disposition home or self-care (01) ==
PROVIDERS: PCP Nurse Practitioner Family; Visit Provider Student in an Organized Health Care Education/Training Program
PROC: (CPT 27025; principal; 2021-04-17 10:45)
DX: M70.62 Trochanteric bursitis, left hip (principal); M76.32 Iliotibial band syndrome, left leg
CPT/HCPCS: 27025; 27062; J0690; J1885; J2001; J2250; J2405

== ENCOUNTER → 2021-04-30 09:33 | Outpatient (BNVA) | payer MEDICARE, OTHER, SELFPAY | PROVIDERS: PCP Nurse Practitioner Family; Referring Provider Nurse Practitioner Family | DX: Z47.89 Encounter for other orthopedic aftercare (principal); M70.62 Trochanteric bursitis, left hip ==

== ENCOUNTER → 2021-05-28 09:30 | Outpatient (BNVA) | payer MEDICARE, OTHER, SELFPAY | PROVIDERS: PCP Nurse Practitioner Family; Referring Provider Nurse Practitioner Family | DX: Z47.89 Encounter for other orthopedic aftercare (principal) ==

== ENCOUNTER → 2021-10-04 08:49 | Outpatient (BNVA) | payer MEDICARE, OTHER, SELFPAY | PROVIDERS: PCP Nurse Practitioner Family; Referring Provider Nurse Practitioner Family; Visit Provider Physical Therapy Assistant | DX: Z12.11 Encounter for screening for malignant neoplasm of colon (principal); Z86.010 Personal history of colon polyps ==

== ENCOUNTER 2021-10-12 02:07 | Outpatient (CLI) | payer MEDICARE, OTHER, SELFPAY ==
[2021-10-12 10:18] LABS: Source Nasal/Nares
[2021-10-12 13:44] LABS: COVID-19 PCR Negative (Negative)
== END 2021-10-12 02:08 | disposition home or self-care (01) ==
LOC: LBO 02:07
PROVIDERS: PCP Nurse Practitioner Family; Visit Provider Surgery
DX: Z20.822 Contact with and (suspected) exposure to COVID-19 (principal); Z01.818 Encounter for other preprocedural examination
CPT/HCPCS: 87635

== ENCOUNTER 2021-10-15 08:26 | Day surgery (SDC) | payer MEDICARE, OTHER, SELFPAY ==
--- NOTE | 2021-10-15 06:49 | W.COLOREPORT ---
Colonoscopy Report Date of procedure: 10/15/21 Pre-op diagnosis general: Colon Cancer Screening/ Hx of colon polyps Post-op diagnosis procedure note: other (transverse polyp, sigmoid diverticulosis) Procedure: Colonoscopy with polypectomy Surgeon: Tamica Varela Anesthesia Type: General:No Airway (Sai Velazco CRNA) Complications: None Disposition: same day Indications: The patient is here for Colonoscopy pre-op. His last screening was in 2018, which was unremarkable, with recommended f/u in 3 yrs secondary to history of pre-cancerous polyps.? He has no family history of colon cancer. He has not had any bowel habit changes. -Discussed colonoscopy bowel prep as well as the procedure. Discussed possible complications of the procedure to include bleeding, pain, perforation, missed small lesion/polyp, sore throat, aspiration and adverse reaction to the medications. Questions were answered to patient?s satisfaction. No guarantees were implied or given.? Prep: Miralax/Dulcolax Procedure Start Time: 10:30 Procedure End Time: 11:08 Findings: One sessile polyp Mild diverticulosis Procedure Description: After informed consent was obtained the patient was taken to the procedure room and placed in a left decubitous position. Monitors were applied and a time out was done. The patients name, date of , procedure, allergies to medications and metal in their body was reviewed. The patient was then sedated. Once sedated and comfortable a rectal exam was done. External exam was normal. Internal exam revealed a normal sphincter tone and no palpable masses. The prostate felt smooth and slightly enlarged. The scope was then introduced and retro-flexed. No internal hemorrhoids, polyps or masses were identified on retro-flexion. The scope was then advanced to the cecum with some difficulty. The ileocecal vlave and appendiceal orifice were identified. The prep was marginal. The scope was then slowly retracted over 19 minutes back into the rectum. Polyps were removed with cold forceps in the transverse colon. There was mild sigmoid diverticulosis noted. The scope was removed and the patient was woken up and taken back to Same day surgery in stable condition. The patient tolerated the procedure well and there were no immediate complications. Follow up: The patient should follow up in 3-5 years unless they develop changes in bowel habits or other new gastrointestinal complaints.
--- NOTE | 2021-10-15 06:50 | W.PM.DSUDISC ---
Discharge Plan Disposition Patient Disposition: HOME Condition: Good Discharge Details Reason For Visit: Colonoscopy Attending Provider: Tamica Varela Primary Care Provider: Saurabh Tejeda Home Meds and New Rx's Prescriptions: Continued fexofenadine [Allergy Relief (fexofenadine)] 180 mg tablet 180 mg PO DAILY 0RF docusate sodium 100 MG capsule 100 mg PO BID PRN0RF multivitamin 1 EACH capsule 1 ea PO DAILY 0RF trazodone 100 MG tablet 300 mg PO HS 0RF liothyronine 5 MCG tablet 10 mcg PO DAILY 0RF Label Comments: 12/02/16: Pt takes 2 tabs daily. -BR bupropion HCl 300 MG tablet extended release 24 hr 300 mg PO DAILY 0RF fluticasone propionate 16 GM spray,suspension 50 mcg NS DAILY PRN 0RF sertraline 50 MG tablet 100 mg PO DAILY 0RF memantine 10 mg tablet 10 mg PO BID Qty: 180 3RF simvastatin 20 mg tablet 20 mg PO HS 0RF meloxicam 15 mg Tablet 15 mg PO DAILY 0RF ibuprofen 600 mg tablet 600 mg PO TID PRN (Reason: pain) Qty: 30 0RF acetaminophen 500 mg capsule 1,000 mg PO Q8H PRN PRNQty: 90 0RF Discontinued bisacodyl [Dulcolax (bisacodyl)] 5 mg tablet,delayed release (DR/EC) 5 mg PO ONCE Qty: 4 0RF Rx Instructions: Take according to provider's instructions for colonoscopy prep. polyethylene glycol 3350 17 gram/dose powder 17 g PO ONCE Qty: 238 0RF Rx Instructions: To be taken as directed by prescriber's office for colonoscopy prep. Discharge Instructions Instructions: Diverticulosis (DC) Additional Instructions: Findings: 1 polyp diverticulosis Follow up: 3-5 years Please call if you develop: fevers >101.5 Nausea or Vomiting Abdominal pain that is not transient Rectal bleeding that is more then a tbsp A hard abdomen and inability to pass gas DAY SURGERY UNIT POST ENDOSCOPY INSTRUCTIONS Instructions for everyone who is given Anesthesia: For your safety, please do the following for the next 24 Hours: a. Do not drive or operate dangerous equipment b. Do not drink alcohol beverages or use any recreational drugs for the first 24 hours or while taking pain medications. The medications in your body may have a reaction that can be dangerous. c. Do not make any important decisions or sign any important papers 1. Generally there are no restrictions on your activity after a day or so has gone by, but you may feel a bit fatigued for a few days. 2. After you arrive home you may have a light meal and return to a normal diet as you can tolerate it without feeling sick to your stomach. 3. After surgery, you may feel pain or discomfort. This should be only transient, but if it persists please contact your doctor. 4. If there are any questions regarding the findings of your procedure, please feel free to contact your doctor. 6. If you are unable to contact your doctor with a problem, contact the hospital at [phone]. 7. Continue all your regular medications unless directed otherwise. I understand the above instructions and have no questions. Signature of Patient or Responsible Adult Escort Date/Time Name of Responsible Adult Escort Signature of Nurse Date/Time Activity:: Activity as Tolerated Diet:: High Fiber diet Discharge Orders Discharge Orders: Discharge Order (Routine); Ordered 10/15/21 Ordered By: Tamica Varela
[2021-10-15 08:30] VITALS: BP 117/72; PULSE 78; RESP 16; TEMP 36.2; O2SAT 96
[2021-10-15] MEDS: Lactated Ringers 1,000 ML 80 ML IV (09:03)
[2021-10-15 09:13] LABS: TSH 1.48 uIU/mL (0.36-3.74)
--- NOTE | 2021-10-15 09:21 | W.ANESPRE ---
General Info Date of Service Date Performed: 10/15/21 Height: 6 ft 1 in Weight: 120 kg Body Mass Index (BMI): 34.9 Surgical Procedure: Operation Date: 10/15/21 10:20 Proposed Procedure Side Surgeon p Mark Monge MD Meds Allergies and Home Medications Allergies Allergy/AdvReac Type Severity Reaction Status Date / Time No Known Allergies Allergy Verified 10/12/21 14:38 Home Medication Medication Instructions Recorded docusate sodium 100 mg capsule 100 mg PO BID PRN tab-cap 11/09/14 multivitamin 1 ea PO DAILY 11/09/14 trazodone 100 mg tablet 300 mg PO HS tab-cap 11/17/14 bupropion HCl 300 mg 24 hr tablet, 300 mg PO DAILY tab-cap 10/12/15 extended release liothyronine 5 mcg tablet 10 mcg PO DAILY tab-cap 10/12/15 fluticasone propionate 50 50 mcg NS DAILY PRN spray 10/30/15 mcg/actuation nasal spray,suspension sertraline 50 mg tablet 100 mg PO DAILY tab-cap 01/28/18 simvastatin 20 mg tablet 20 mg PO HS 10/22/19 memantine 10 mg tablet 10 mg PO BID #180 tab 12/11/20 fexofenadine 180 mg tablet 180 mg PO DAILY 03/12/21 (Allergy Relief (fexofenadine)) meloxicam 15 mg tablet 15 mg PO DAILY 04/13/21 acetaminophen 500 mg capsule 1,000 mg PO Q8H PRN PRN #90 cap 04/17/21 ibuprofen 600 mg tablet 600 mg PO TID PRN #30 tab 04/17/21 bisacodyl 5 mg tablet,delayed 5 mg PO ONCE #4 tab 10/04/21 release (Dulcolax (bisacodyl)) polyethylene glycol 3350 17 17 g PO ONCE #238 g 10/04/21 gram/dose oral powder Current Visit Medications: Current Medications Generic Name Dose Route Start Last Admin Trade Name Freq PRN Reason Stop Dose Admin Hyoscyamine Sulfate 0.125 mg 10/15/21 06:50 Hyoscyamine 0.125 Mg Sl/Oral/Chew SL DIRECTED PRN Ringer's Solution 1,000 mls @ 80 mls/hr 10/15/21 06:00 10/15/21 09:03 IV 10/29/21 23:59 80 mls/hr INFUSION KEVEN Administration IV Miscellaneous Supplies 1 each 10/15/21 06:00 Iv Access IV 10/29/21 23:59 DIRECTED KEVEN Ondansetron HCl 4 mg 10/15/21 06:50 Ondansetron 4 Mg/2 Ml Vial IVP Q4H PRN PRN Nausea / Vomiting Sodium Chloride 0 ml 10/15/21 06:00 Normal Saline Flush 10 Ml Syr IV 10/29/21 23:59 PRN PRN Sodium Chloride 0 ml 10/15/21 06:00 Normal Saline 10 Ml Vial IJ 10/29/21 23:59 DIRECTED PRN Sterile Water 0 ml 10/15/21 06:00 Water,Injection,Sterile 10 Ml Vial IJ 10/29/21 23:59 DIRECTED PRN PFSH Active Problems Active Problems: Problem Status Onset Code Screening for colon cancer Z12.11 Obesity 11/09/14 E66.9 Obstructive sleep apnea 11/09/14 G47.33 Medical History Medical History Allergic rhinitis Allergic rhinitis (11/09/14) Cubital tunnel syndrome on right (03/16/18) Depressive disorder (11/09/14) Essential tremor (01/28/18) Gastric ulcer (01/31/14) EGD 12/2013 Glucose intolerance Hyperlipidemia (12/08/14) Left hip pain (11/22/15) Bursitis to left hip seen by ortho 2014. Currently doing PT Memory loss Orthostatic hypotension (01/28/18) Osteoarthritis Peripheral polyneuropathy (01/28/18) Pilonidal cyst Right rotator cuff tendonitis Tendinitis involving left hip abductors Tingling of right upper extremity (01/28/18) Trochanteric bursitis, left hip (06/17/16) S/P debridement/IT band tenotomy: 04/17/2021 Trochanteric bursitis, right hip (06/17/16) Tubular adenoma 02/06/15 DR. MONGE Surgical History Surgical History Appendectomy B/L ELBOW FX (~04/2013) BACK SURGERY (~2002) Colonoscopy - IV Sedation (02/09/18) 01/2016-Dr. Monge Tubular and tubulovillous adenomas Colonoscopy - MAC (02/09/18) Excision, Pilonidal Cyst (01/08/17) EYE SURGERY LEFT ANKLE SURGERY (~1987) Nasal septoplasty (~2006) Open Carpal Tunnel release (~2007) B/L RIGHT SHOULDER REPAIR (~05/2012) Tonsillectomy Tooth extraction GLAUCOMA LASER Tobacco Smoking/Tobacco Use Status: Former Tobacco Use Passive smoking exposure: Yes Second hand exposure: Yes Alcohol Alcohol Intake: former Substance Use Substance use: Never Substance use type: does not use Vital Signs and Lab Results Vital Signs Most Recent Vital Signs in EMR: Most Recent Vital Signs Temp Pulse Resp BP Pulse Ox 36.2 C L 78 16 117/72 96 10/15/21 08:30 10/15/21 08:30 10/15/21 08:30 10/15/21 08:30 10/15/21 08:30 Lab Results Blood Type / Crossmatch: No Data to Display Complete Blood Count: No Data to Display Complete Metabolic Panel: No Data to Display Liver Function Panel: No Data to Display Coagulation Panel: No Data to Display Cardiac Panel: No Data to Display Arterial Blood Gas: No Data to Display Venous Blood Gas: No Data to Display Pancreas Panel: No Data to Display Thyroid Panel: Thyroid Stimulating Hormone (TSH) 1.48 uIU/mL (0.36-3.74) 10/15/21 08:47 10/15/21 Infectious Disease: Coronavirus (COVID-19)(PCR) Negative (Negative) 10/12/21 08:34 10/12/21 Coronavirus 2019 Source Nasal/Nares 10/12/21 08:34 10/12/21 Blood Cultures: No Data to Display Toxicology Panel: No Data to Display Anesthesia Assessment and Plan Anesthesia History Personal History: No History of Anesthesia Complications Family History: No Family History of Anesthesia Complications Exercise Tolerance Exercise Tolerance: Metabolic Equivalents>4 Pertinent Negatives Pertinent Negatives: No Symptoms of GERD, No Major Cardiovascular Symptoms or Complaints, No Major Pulmonary Symptoms or Complaints and No History of CVA/TIA Cardiac & Pulmonary Exam Cardiac Exam: Normal S1/S2 Heart Sounds Pulmonary Exam: Clear Bilateral Breath Sounds Cardiac and Pulmonary Comment:: Sleep apnea uses device Implantable Cardiac Device Does patient have a Pacemaker or an ICD?: No Airway Exam Known Difficult Airway: No Mallampati Class: 1 Mouth Opening: Normal (> 3cm) Thyromental Distance: Greater than 3 cm Neck Range of Motion: Full ROM Neck Circumference: Normal Teeth Condition: Removable Dentures/Plates Upper and Removable Dentures/Plates Lower ASA Classification ASA Score: ASA 2 Emergency Case?: No NPO Status NPO Status: NPO Clears >2 hours, Solids >8 hours Anesthesia Plan Resuscitation Status: Full Code Anesthesia Technique: General Anesthesia Airway Planned: Natural Airway Monitors Used: Standard Monitors
[2021-10-15 09:28] VITALS: BMI 34.9
--- NOTE | 2021-10-15 10:50 | BOWEL_PTH ---
PATIENT: Pipo Longoria LOC: [facility] U#:[id number] AGE/SX: 71/M ROOM: RE10/15/[address]: Tamica Varela MD : 1950 BED: DIS: 10/15/2021 SPEC #: [id number] RECD: 10/15/21 12:49 STATUS: FRIEDA REQ #: [id number] NAKITA: 10/15/21 10:[address]: Tamica Varela DEPT: Surgical Specimen RECD BY: Dina Alonso ENTERED: 10/15/21 12:50 SP TYPE: Bowel OTHR DR: Saurabh Tejeda, KRISTEN Tissues: 1 - BIOPSY BOWEL Procedures: GROSS AND MICRO LEVEL 4 Comments: [id number]
[2021-10-15 11:15] VITALS: BP 131/59; PULSE 65; RESP 16; TEMP 36.5; O2SAT 94
[2021-10-15 11:43] VITALS: BP 98/65; PULSE 60; RESP 16; TEMP 36.4; O2SAT 94
--- NOTE | 2021-10-16 11:32 | W.ANESPOSTOP ---
Postoperative Evaluation Date, Time and Location Date Performed: 10/15/21 Time Performed: 11:46 Patient Location: Day Surgery Unit Vital Signs Most Recent Imported Vital Signs: Most Recent Vital Signs Temp Pulse Resp BP Pulse Ox 36.4 C L 60 16 98/65 L 94 10/15/21 11:43 10/15/21 11:43 10/15/21 11:43 10/15/21 11:43 10/15/21 11:43 Pain Score Most Recent Pain Score: Most Recent Pain Score Pain Level 0 10/15/21 11:43 Assessment Mental Status: Awake (Alert & Oriented to Patient Baseline) Airway and Respiratory Function: Patent airway with normal (patient baseline) respiratory exam Cardiovascular Function: Hemodynamically Stable Hydration Status: Adequately Hydrated Nausea & Vomiting: No Nausea or Vomiting Pain: Pt. Denies Any Pain Peripheral Nerve Block: Patient did not receive a nerve block
== END 2021-10-15 12:28 | disposition home or self-care (01) ==
LOC: SUR 08:26
PROVIDERS: PCP Nurse Practitioner Family; Visit Provider Surgery
PROC: 0DJD8ZZ Inspection of Lower Intestinal Tract, Via Natural or Artificial Opening Endoscopic (ICD-10-PCS; CPT 45378; principal; 2021-10-15 10:15)
DX: Z12.11 Encounter for screening for malignant neoplasm of colon (principal); D12.3 Benign neoplasm of transverse colon; K57.30 Diverticulosis of large intestine without perforation or abscess without bleeding; Z86.010 Personal history of colon polyps; G47.33 Obstructive sleep apnea (adult) (pediatric); E03.9 Hypothyroidism, unspecified
CPT/HCPCS: 45380; 36415; 88305; 84443

== ENCOUNTER 2022-01-18 20:19 | Emergency (ER) | payer MEDICARE, OTHER, SELFPAY ==
[2022-01-18 20:32] VITALS: BP 114/58; PULSE 70; RESP 20; TEMP 36.4; O2SAT 95
--- NOTE | 2022-01-18 20:45 | DI.CT_ITS ---
Exam(s) CT HEAD WO EXAM: CT HEAD WO CLINICAL HISTORY: fall, head trauma. TECHNIQUE: Imaging Protocol: Axial computed tomography images with coronal and sagittal reformatted images were created and reviewed COMPARISON: No exams were available for comparison FINDINGS: Ventricles and Extra axial spaces: Normal in size and morphology for the patient's age. Hemorrhage: None. Cerebral parenchyma: There are areas of decreased attenuation in the white matter most consistent wit h small vessel ischemic disease. No acute territorial infarct is present. Midline shift: None. Brainstem/Cerebellum: Normal. Calvarium: There are fractures involving the right orbital floor without significant depression. The re are also fractures involving the anterior and posterior wall of the right maxillary sinus. There is blood cyst seen layering in the right maxillary sinus. There is gas seen in the right retro-orbit al soft tissues secondary to the orbital floor fracture. Subcutaneous emphysema is seen in the prese ptal soft tissues, the right cheek and the right infratemporal fossa and automotive technician instructor space. The globe s appear intact. Visualized Paranasal sinuses/Mastoids: Please see the above discussion. Apart from the right maxilla ry sinus, the remaining visualized paranasal sinuses and mastoid air cells are clear. Soft Tissues: Please see the above section. IMPRESSION: 1. Fracture involving the right orbital floor with retro-orbital gas present. 2. Fractures involving the anterior and posterior conti of the right maxillary sinus with blood layer ing in the sinus cavity. Extensive subcutaneous gas is seen over the right face, infratemporal fossa and automotive technician instructor space. 3. No acute intracranial process. RADIATION DOSE DELIVERED: 931.55mGy.cm Total DLP DATA REPOSITORY: All CT scans at this facility are submitted to the National Radiology Data Registry (NRDR) Dose Index Registry (DIR) with the [employer] (A[employer]). RADIATION OPTIMIZATION: All CT scans at this facility use at least one of these dose optimization te chniques: automated exposure control; mA and/or kV adjustment per patient size (includes targeted exa ms where dose is matched to clinical indication); or iterative reconstruction.
--- NOTE | 2022-01-18 21:33 | DI.VRAD_ITS ---
Addendum created by Jermaine Murry MD on 01/18/2022 9:33:28 PM EDT: THIS REPORT CONTAINS FINDINGS THAT MAY BE CRITICAL TO PATIENT CARE. The findings were verbally communicated via telephone conference with MOSHE WADE at 9:33 PM EDT on 01/18/2022. The findings were acknowledged and understood. Initial report created on 01/18/2022 9:33:10 PM EDT: PROCEDURE INFORMATION: Exam: CT Head Without Contrast Exam date and time: 01/18/2022 9:08 PM Age: 71 years old Clinical indication: Injury or trauma; Blunt trauma (contusions or hematomas); Consciousness not specified; Injury date: 01/18/22; Injury details: Fall, head trauma TECHNIQUE: Imaging protocol: Computed tomography of the head without contrast. Radiation optimization: All CT scans at this facility use at least one of these dose optimization techniques: automated exposure control; mA and/or kV adjustment per patient size (includes targeted exams where dose is matched to clinical indication); or iterative reconstruction. COMPARISON: MR BRAIN WO 08/23/2019 9:13 AM FINDINGS: Brain: Slight prominence of cerebral sulci reflects mild volume loss. Posterior fossa contents including brainstem and cerebellum are unremarkable and no significant foci of abnormal increased or decreased attenuation are seen within the brain parenchyma. No acute intracranial hemorrhage is detected. Cerebral ventricles: Ventricular and cisternal spaces are normal in size and configuration and there is no midline shift or hydrocephalus. Paranasal sinuses: Blood layers along the dependent margin of the left maxillary sinus in association with fractures involving the floor of the right orbit and posterior margin of the right maxillary sinus. Other paranasal sinuses are grossly clear throughout. Mastoid air cells: Grossly clear bilaterally. Orbital cavities: Both globes appear intact and no orbital lesions are detected. Bones/joints: The bony calvarium and skull base appear intact. Fracture is identified involving the floor of the right orbit and along the anterior margin of the right maxillary sinus with suspected subtle fracture also seen along the posterior margin of the right maxillary sinus. Soft tissues: Intraorbital gas is seen in association with the fracture involving the floor of the right orbit with additional gas seen within the right preseptal soft tissues, pre maxillary soft tissues and the soft tissues of the right infratemporal fossa and doctor of pharmacy space. IMPRESSION: 1. Mild cerebral atrophy with no evidence of acute infarct, recent hemorrhage or hydrocephalus. No acute intracranial process is detected. 2. Fractures involve the floor of the right orbit and anterior margin of the right maxillary sinus as well as the posterior margin of the right maxillary sinus in association with blood layering along the dependent right maxillary sinus and intraorbital gas with additional scattered collections of gas involving the right preseptal, pre maxillary, infratemporal fossa and right doctor of pharmacy space soft tissues. Dictated and Authenticated by: Jermaine Murry MD. Ordering:AMPARO Paul MD
--- NOTE | 2022-01-18 22:29 | ED.GENADUL_ITS ---
Discharge Plan Disposition Patient Disposition: HOME Condition: Stable Discharge Details Clinical Impression: Fracture of orbital floor, right side, initial encounter for closed fracture, Closed right maxillary fracture Primary Care Provider: Saurabh Tejeda ED Provider: Humberto Phelan Home Meds and New Rx's Prescriptions: New cephalexin 500 mg tablet 500 mg PO QID Qty: 27 0RF Continued fexofenadine [Allergy Relief (fexofenadine)] 180 mg tablet 180 mg PO DAILY multivitamin 1 EACH capsule 1 ea PO DAILY trazodone 100 MG tablet 300 mg PO HS bupropion HCl 300 MG tablet extended release 24 hr 300 mg PO DAILY fluticasone propionate 16 GM spray,suspension 50 mcg NS DAILY PRN sertraline 50 MG tablet 100 mg PO DAILY memantine 10 mg tablet 10 mg PO BID Qty: 180 3RF simvastatin 20 mg tablet 20 mg PO HS liothyronine 5 MCG tablet 25 mcg PO DAILY Qty: 0 0RF Label Comments: 12/02/16: Pt takes 2 tabs daily. -BR meloxicam 15 mg Tablet 15 mg PO DAILY ibuprofen 600 mg tablet 600 mg PO TID PRN (Reason: pain) Qty: 30 0RF acetaminophen 500 mg capsule 1,000 mg PO Q8H PRN PRNQty: 90 0RF Discharge Instructions Instructions: Facial Fracture (ED), Fall Prevention for Older Adults (ED), Facial Laceration (ED) Additional Instructions: Maintain sinus precautions for the next 3 weeks: No blowing your nose. If you have to sneeze, be sure to sneeze with your mouth open. Please take antibiotic as prescribed. Please follow suture removal instructions as provided by [facility]. Wound should be reexamined for possible suture removal in 7 days. Please contact your primary care physician to arrange follow-up. Return to the ER immediately for any worsening or new concerning symptoms. Referrals: Saurabh Tejeda, RN CHARGE [Primary Care Provider] - Discharge Data Discharge Date/Time-TO BE ENTERED AT DEPARTURE: 01/18/22 22:53 Medical Decision Making 71yo m here with facial/head trauma. Patient seen in [facility] and had laceration repaired. Sent with concern for facial fracture or intracranial hemorrhage. Patient does have extensive swelling of his right orbit and concerned about orbital fracture. Consider also acute life-threatening intracranial traumatic hemorrhage. CT head was interepreted by radiology: IMPRESSION: 1. Mild cerebral atrophy with no evidence of acute infarct, recent hemorrhage or hydrocephalus. No acute intracranial process is detected.? 2.? Fractures involve the floor of the right orbit and anterior margin of the right maxillary sinus as well as the posterior margin of the right maxillary sinus in association with blood layering along the dependent right maxillary sinus and intraorbital gas with additional scattered collections of gas involving the right preseptal, pre maxillary, infratemporal fossa and right insurance application investigator space soft tissues. I spoke with Dr. Syed, on-call facial surgeon at [facility], he recommends sinus precautions including no blowing nose and mouth opening with any sneezing over the next few weeks. He does recommend prophylactic antibiotics given degree of air and soft tissue. Tetanus up-to-date. Usual and customary discharge instructions were reviewed with the patient including sinus precautions. HPI General Mode of arrival: ambulatory . Date/Time Provider Initiated Documentation: 01/18/22 20:45 . Limitations to Documentation: no limitations . Information obtained by: patient . HPI Narrative: 71yo m here with chief complaint of facial/head trauma. Patient notes she was gardening and tripped and fell and hit his face on pavement at 4 PM today. Patient seen in [facility] and had laceration repaired.? Sent with concern for facial fracture or intracranial hemorrhage. Patient does have moderate right frontal headache. No associated visual change. No numbness or tingling. Related Data Home Medications Medication Instructions Recorded Confirmed multivitamin 1 ea PO DAILY 11/09/14 01/21/22 trazodone 100 mg tablet 300 mg PO HS 11/17/14 01/21/22 bupropion HCl 300 mg 24 hr tablet, 300 mg PO DAILY 10/12/15 01/21/22 extended release fluticasone propionate 50 50 mcg NS DAILY PRN 10/30/15 01/21/22 mcg/actuation nasal spray,suspension sertraline 50 mg tablet 100 mg PO DAILY 01/28/18 01/21/22 simvastatin 20 mg tablet 20 mg PO HS 10/22/19 01/21/22 fexofenadine 180 mg tablet 180 mg PO DAILY 03/12/21 01/21/22 (Allergy Relief (fexofenadine)) meloxicam 15 mg tablet 15 mg PO DAILY 04/13/21 01/21/22 acetaminophen 500 mg capsule 1,000 mg PO Q8H PRN PRN #90 caps 04/17/21 01/21/22 ibuprofen 600 mg tablet 600 mg PO TID PRN pain #30 tabs 04/17/21 01/21/22 liothyronine 5 mcg tablet 25 mcg PO DAILY #0 tab-caps 10/15/21 01/21/22 memantine 10 mg tablet 10 mg PO BID #180 tabs 01/07/22 01/21/22 cephalexin 500 mg tablet 500 mg PO QID #27 tabs 01/18/22 Previous Rx's Medication Instructions Recorded acetaminophen 500 mg capsule 1,000 mg PO Q8H PRN PRN #90 caps 04/17/21 ibuprofen 600 mg tablet 600 mg PO TID PRN pain #30 tabs 04/17/21 liothyronine 5 mcg tablet 25 mcg PO DAILY #0 tab-caps 10/15/21 memantine 10 mg tablet 10 mg PO BID #180 tabs 01/07/22 cephalexin 500 mg tablet 500 mg PO QID #27 tabs 01/18/22 Allergies Allergy/AdvReac Type Severity Reaction Status Date / Time No Known Allergies Allergy Verified 01/23/22 11:11 General Stated Complaint: HeadInjury CORBIN: 3 Review of Systems All systems reviewed & are unremarkable except as noted in HPI and below Constitutional Constitutional: Reports headache(s) Eyes Eyes: Reports as per HPI ENT Ears, Nose, Mouth, and Throat: Reports headache(s) Neurologic Neurologic: Reports headache(s) PFSH All Active Problems Fracture of orbital floor, right side, initial encounter for closed fracture (Acute) Closed right maxillary fracture (Acute) Tubular adenoma of colon (Acute) Obesity (Acute 11/09/14) Obstructive sleep apnea (Acute 11/09/14) HAS C-PAP Medical History Allergic rhinitis Allergic rhinitis (11/09/14) Cubital tunnel syndrome on right (03/16/18) Depressive disorder (11/09/14) Essential tremor (01/28/18) Gastric ulcer (01/31/14) EGD 12/2013 Glucose intolerance Hyperlipidemia (12/08/14) Left hip pain (11/22/15) Bursitis to left hip seen by ortho 2014. Currently doing PT Memory loss Orthostatic hypotension (01/28/18) Osteoarthritis Peripheral polyneuropathy (01/28/18) Pilonidal cyst Right rotator cuff tendonitis Screening for colon cancer Tendinitis involving left hip abductors Tingling of right upper extremity (01/28/18) Trochanteric bursitis, left hip (06/17/16) S/P debridement/IT band tenotomy: 04/17/2021 Trochanteric bursitis, right hip (06/17/16) Tubular adenoma 02/06/15 DR. MONGE Surgical History Appendectomy B/L ELBOW FX (~04/2013) BACK SURGERY (~2002) Colonoscopy - IV Sedation (02/09/18) 01/2016-Dr. Monge Tubular and tubulovillous adenomas Colonoscopy - MAC (02/09/18) Excision, Pilonidal Cyst (01/08/17) EYE SURGERY LEFT ANKLE SURGERY (~1987) Nasal septoplasty (~2006) Open Carpal Tunnel release (~2007) B/L RIGHT SHOULDER REPAIR (~05/2012) Tonsillectomy Tooth extraction GLAUCOMA LASER Family History Mother , 93 Depression Cancer Father , 95 Heart disease Prostate cancer Brother Essential hypertension Maternal Grandfather , 75 Heart disease Paternal Grandfather Heart disease Maternal Grandmother , 60 No problems noted. Paternal Grandmother , 76 Diabetes Brother , 25 Substance abuse Depression Social History Smoking/Tobacco Use Status: Former Tobacco Use tobacco type: cigarettes Quit status: has quit before Second Hand Exposure: Yes Smoking risk assessment performed?: Yes Alcohol Intake: former Drug use: Never Substance use type: does not use Caregiver/Support person: No Housing: house Do you need help understanding health information?: Often current occupation: Retired . Pets and animals: No Sexually active: Yes Do you think of yourself as: straight/heterosexual What is your relationship status?: living with partner How often do you talk on the phone with friends or family?: three or more times per week How often do you get together with friends or relatives?: once per week How often do you attend denominational or taoism services?: decline to answer Do you belong to any clubs or organized social groups?: no Panel score (0-1 are the most socially isolated patients): 2 What type of physical activity do you participate in: none Duration: decline to answer Frequency: decline to answer Ramona/Cheondoism: Yazidism Special ramona needs: No Seatbelt use: always Drive intox or ride w/intox 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 Do you feel safe at home: Yes Do you feel safe in your relationship?: Yes Exam Const General: cooperative and no acute distress HENMT Head: atraumatic, no Lobo's sign, laceration (Sutured right face), no palpable skull fracture and other (Bruising and swelling right frontal) Ears: TM normal on the right General nose exam: external nose normal Mouth: moist mucous membranes Eyes Alignment and Position: alignment normal Conjunctivae: normal conjunctivae Sclera: normal sclerae Pupils: PERRL EOM: EOM intact bilaterally Neck Neck: full ROM, trachea midline, supple and nontender Resp Auscultation: clear to auscultation bilaterally, no rales, no rhonchi and no wheezes Cardio Rate: regular rate and not tachycardic Rhythm: regular rhythm GI Palpation: soft, not firm, no guarding, no masses, not rigid and nontender Skin General skin exam: no rashes or lesions noted Neuro General: patient alert, patient awake, patient oriented x3 and tone normal Psych Appearance: grossly normal Mental Status: mental status grossly normal Speech and Movement: speech and movement normal Course Vital Signs Vital signs: Vital Signs Temperature 36.4 C L 01/18/22 20:32 Pulse 70 01/18/22 20:32 Respiratory Rate 20 01/18/22 20:32 Blood Pressure 114/58 L 01/18/22 20:32 Pulse Oximetry 95 01/18/22 20:32 Temperature 36.4 C L 01/18/22 20:32 Temperature Source Skin 01/18/22 20:32 Pulse 70 01/18/22 20:32 Respiratory Rate 20 01/18/22 20:32 Blood Pressure 114/58 L 01/18/22 20:32 Blood Pressure Position Supine 01/18/22 20:32 Pulse Oximetry 95 01/18/22 20:32 Oxygen Delivery Method Room Air 01/18/22 20:32 Oxygen Flow Rate 0 01/18/22 20:32 Pain Level 2 01/18/22 20:32
[2022-01-18] MEDS: Cephalexin 500 MG CAP PO (22:51)
[2022-01-18 22:52] VITALS: BP 116/70; PULSE 69; RESP 20; O2SAT 98
== END 2022-01-18 22:53 | disposition home or self-care (01) ==
PROVIDERS: Emergency Provider Student in an Organized Health Care Education/Training Program; PCP Nurse Practitioner Family
DX: S02.31XA Fracture of orbital floor, right side, initial encounter for closed fracture (principal); S02.40CA Maxillary fracture, right side, initial encounter for closed fracture; W01.0XXA Fall on same level from slipping, tripping and stumbling without subsequent striking against object, initial encounter
CPT/HCPCS: 99284; 70450; 99283

== ENCOUNTER → 2022-02-13 09:30 | Outpatient (BNVA) | payer MEDICARE, OTHER, SELFPAY | PROVIDERS: PCP Family Medicine; Referring Provider Family Medicine; Visit Provider Psychiatry & Neurology Neurology | DX: R41.3 Other amnesia (principal); F32.9 Major depressive disorder, single episode, unspecified; G62.9 Polyneuropathy, unspecified; G25.0 Essential tremor; G47.33 Obstructive sleep apnea (adult) (pediatric) | CPT/HCPCS: 99214 ==

== ENCOUNTER → 2022-02-14 02:37 | Outpatient (CLI) | payer MEDICARE, OTHER, SELFPAY ==
--- NOTE | 2022-02-14 09:07 | DI.CT_ITS ---
Exam(s) CT FACIAL WO EXAM: CT FACIAL WO CLINICAL HISTORY: f/u facial fracture, ongoing swelling and pain,S02.31XA,S02.40CA. TECHNIQUE: Imaging Protocol: Axial computed tomography images with coronal and sagittal reformatted images were created and reviewed. No IV contrast COMPARISON: CT CT HEAD WO from 01/18/2022 FINDINGS: MAXILLOFACIAL CT SCAN: The previously described right-sided facial fractures are again noted. The facial and intraorbital a ir-gas is no longer seen and there are presently no blood/fluid levels in the paranasal sinuses (as w as previously present). Previously described fracture lines in the right maxillary sinus still seen but without significant d isplacement. No new additional fractures evident. Nasal bones appear intact as does the nasal septum. On the opposite-left side there is a small osteophytic density noted in the superomedial aspect of th e left orbit, anteriorly, previously present on 01/18/2022 and not adjacent to a fracture site. This may be a foreign body. Measures 4 x 3 millimeter IMPRESSION: Stable right-sided facial fractures predominantly involving the right maxillary sinus. Previously present fluid-blood within the sinuses has resolved and the previously present prominent a ir-gas associated with these fractures in the right-side of the face and right orbit has also resolve d. 4 x 3 millimeter density in the anterior left orbit, previously present. There does not appear to be an adjacent fracture. RADIATION DOSE DELIVERED: 330.3mGy.cm Total DLP DATA REPOSITORY: All CT scans at this facility are submitted to the National Radiology Data Registry (NRDR) Dose Index Registry (DIR) with the [employer] (ACR). RADIATION OPTIMIZATION: All CT scans at this facility use at least one of these dose optimization te chniques: automated exposure control; mA and/or kV adjustment per patient size (includes targeted exa ms where dose is matched to clinical indication); or iterative reconstruction.
== END ==
PROVIDERS: PCP Family Medicine; Visit Provider Family Medicine
DX: S02.40CA Maxillary fracture, right side, initial encounter for closed fracture; M85.88 Other specified disorders of bone density and structure, other site; X58.XXXA Exposure to other specified factors, initial encounter
CPT/HCPCS: 70486

== ENCOUNTER → 2022-08-14 08:27 | Outpatient (BNVA) | payer MEDICARE, OTHER, SELFPAY | PROVIDERS: PCP Family Medicine; Referring Provider Family Medicine; Visit Provider Psychiatry & Neurology Neurology | DX: R26.89 Other abnormalities of gait and mobility (principal); F32.A Depression, unspecified; G47.00 Insomnia, unspecified; G62.9 Polyneuropathy, unspecified; R41.3 Other amnesia; G25.0 Essential tremor | CPT/HCPCS: 99214 ==

== ENCOUNTER → 2023-02-12 08:26 | Outpatient (BNVA) | payer MEDICARE, OTHER, SELFPAY | PROVIDERS: PCP Family Medicine; Referring Provider Family Medicine; Visit Provider Psychiatry & Neurology Neurology | DX: R26.9 Unspecified abnormalities of gait and mobility (principal); G62.9 Polyneuropathy, unspecified; G25.0 Essential tremor; R41.3 Other amnesia; F39 Unspecified mood [affective] disorder; G47.00 Insomnia, unspecified; G47.33 Obstructive sleep apnea (adult) (pediatric) | CPT/HCPCS: 99214 ==

== ENCOUNTER → 2023-08-11 08:50 | Outpatient (BNVA) | payer MEDICARE, OTHER, SELFPAY | PROVIDERS: PCP Family Medicine; Referring Provider Family Medicine; Visit Provider Psychiatry & Neurology Neurology | DX: R26.9 Unspecified abnormalities of gait and mobility (principal); G60.8 Other hereditary and idiopathic neuropathies; G25.0 Essential tremor; R41.3 Other amnesia | CPT/HCPCS: 99214 ==

== ENCOUNTER → 2023-12-16 10:07 | Outpatient (BNVA) | payer MEDICARE, OTHER, SELFPAY | PROVIDERS: PCP Family Medicine; Referring Provider Family Medicine; Visit Provider Psychiatry & Neurology Neurology | DX: G25.0 Essential tremor (principal); R41.3 Other amnesia; R26.9 Unspecified abnormalities of gait and mobility; G62.9 Polyneuropathy, unspecified; M54.50 Low back pain, unspecified | CPT/HCPCS: 99214 ==

== ENCOUNTER → 2024-06-15 09:16 | Outpatient (BNVA) | payer MEDICARE, OTHER, SELFPAY | PROVIDERS: PCP Nurse Practitioner Family; Referring Provider Nurse Practitioner Family; Visit Provider Psychiatry & Neurology Neurology | DX: R41.3 Other amnesia (principal); G25.0 Essential tremor; G62.9 Polyneuropathy, unspecified; R26.9 Unspecified abnormalities of gait and mobility; G47.33 Obstructive sleep apnea (adult) (pediatric) | CPT/HCPCS: 99214 ==

== ENCOUNTER 2024-12-05 02:24 | Observation (INO) | payer OTHER, SELFPAY ==
[2024-12-05] VITALS (133 sets, daily range): BP systolic 85–127; BP diastolic 47–68; PULSE 62–115; RESP 9–34; TEMP 36.3–37; O2SAT 89–98
--- NOTE | 2024-12-05 02:15 | RT.EKG_ITS ---
APPROVED REPORT Exam: Resting ECG Reason for Exam: Fall Patient Location: E HR:84 bpm ECG Measurements Heart Rate 84 AXIS OR 229 P 67 QRSd 83 QRS -21 QT 407 T 30 QTc 481 Conclusion Sinus rhythm...normal P axis, V-rate 60- 99 Prolonged OR interval...OR >220, V-rate 50- 90 Low voltage, precordial leads...precordial leads <1.0mV Normal [place] No acute ST changes
--- NOTE | 2024-12-05 02:28 | W.ED.GENAD ---
Discharge Plan Discharge Details Chief Complaint: Fall/Non TraumaCriteria Primary Care Provider: Roberta Purdy ED Provider: Jose Alberto Huddleston and New Rx's Prescriptions: No Action fexofenadine [Allergy Relief (fexofenadine)] 180 mg tablet 180 mg PO DAILY escitalopram oxalate 20 mg tablet 20 mg PO DAILY donepezil 10 mg tablet 10 mg PO DAILY Qty: 90 3RF memantine 10 mg tablet 10 mg PO BID Qty: 180 3RF docusate sodium 100 mg capsule 100 mg PO BID polyethylene glycol 3350 [Miralax] 17 gram/dose powder 17 g PO DAILY PRN carboxymethylcellulose sodium 0.25 % dropperette 1 drp ophthalmic (eye) BID trazodone 100 MG tablet 300 mg PO HS fluticasone propionate 16 GM spray,suspension 50 mcg NS DAILY PRN bupropion HCl 300 mg tablet extended release 24 hr 450 mg PO DAILY simvastatin 20 mg tablet 20 mg PO HS liothyronine 5 MCG tablet 25 mcg PO DAILY Qty: 0 0RF Patient Comments: 12/02/16: Pt takes 2 tabs daily. -BR meloxicam 15 mg Tablet 15 mg PO DAILY ibuprofen 600 mg tablet 600 mg PO TID PRN (Reason: pain) Qty: 30 0RF acetaminophen 500 mg capsule 1,000 mg PO Q8H PRN PRNQty: 90 0RF HPI General Mode of arrival: EMS. Date/Time Provider Initiated Documentation: 12/05/24 02:28. Limitations to Documentation: no limitations. Information obtained by: patient and RN notes reviewed. HPI Narrative: Patient presents to ED by ambulance after falling out of bed striking his head with no loss of consciousness. Patient reports feeling extremely weak and had difficulty even getting out of bed. He was unable to get up off the floor even with the help of his . EMS was activated. He was placed in a collar due to complaints of neck pain. He was transferred to ED for evaluation. He reports having abdominal pain and diarrhea yesterday but not today. He denies fever, cough, URI symptoms. He denies any chest pain or shortness of breath. Denies any back pain or urinary symptoms. States that his legs just feel weak and unable to support him. Related Data Home Medications ?Medication ?Instructions ?Recorded ?Confirmed trazodone 100 mg tablet 300 mg PO HS 11/17/14 12/05/24 fluticasone propionate 50 50 mcg NS DAILY PRN 10/30/15 12/05/24 mcg/actuation nasal spray,suspension simvastatin 20 mg tablet 20 mg PO HS 10/22/19 12/05/24 fexofenadine 180 mg tablet 180 mg PO DAILY 03/12/21 12/05/24 (Allergy Relief (fexofenadine)) meloxicam 15 mg tablet 15 mg PO DAILY 04/13/21 12/05/24 acetaminophen 500 mg capsule 1,000 mg (2 x 500 mg) PO Q8H PRN 04/17/21 12/05/24 PRN #90 caps ibuprofen 600 mg tablet 600 mg PO TID PRN pain #30 tabs 04/17/21 12/05/24 liothyronine 5 mcg tablet 25 mcg (5 x 5 mcg) PO DAILY #0 10/15/21 12/05/24 tab-caps bupropion HCl 300 mg 24 hr tablet, 450 mg PO DAILY 06/15/24 12/05/24 extended release donepezil 10 mg tablet 10 mg PO DAILY #90 tabs 06/15/24 12/05/24 escitalopram oxalate 20 mg tablet 20 mg PO DAILY 06/15/24 12/05/24 memantine 10 mg tablet 10 mg PO BID #180 tabs 06/15/24 12/05/24 carboxymethylcellulose sodium 0.25 1 drp ophthalmic (eye) BID 10/12/24 12/05/24 % eye drops in a dropperette docusate sodium 100 mg capsule 100 mg PO BID 10/12/24 12/05/24 polyethylene glycol 3350 17 17 g PO DAILY PRN 10/12/24 12/05/24 gram/dose oral powder (Miralax) Previous Rx's ?Medication ?Instructions ?Recorded acetaminophen 500 mg capsule 1,000 mg (2 x 500 mg) PO Q8H PRN 04/17/21 PRN #90 caps ibuprofen 600 mg tablet 600 mg PO TID PRN pain #30 tabs 04/17/21 liothyronine 5 mcg tablet 25 mcg (5 x 5 mcg) PO DAILY #0 10/15/21 tab-caps donepezil 10 mg tablet 10 mg PO DAILY #90 tabs 06/15/24 memantine 10 mg tablet 10 mg PO BID #180 tabs 06/15/24 Allergies Allergy/AdvReac Type Severity Reaction Status Date / Time No Known Allergies Allergy Verified 12/05/24 02:26 General CORBIN: 3 Exam Narrative Exam Narrative: Const: WDWN male in NAD. VS per triage. HEENT: NC/AT. Normal facial exam. Neck: Collar in place, trachea midline. Lungs: Normal respiratory effort. Lungs are clear. No chest wall tenderness. Cor: RRR without murmur. Good radial pulses. GI: Soft/ND/NT. Back: No TLS spine tenderness. No bruising. Neuro: A+O x 3. Normal speech, mentation. Cranial nerves II - XII grossly intact. No gross motor or sensory deficit. Appears to have some proximal LLE weakness but not distal, no sensory change. Ext: No C/C/E. No deformity or tenderness. Medical Decision Making Patient presenting to ED due to generalized weakness and falling out of bed. He reports head strike and complains of some mild posterior neck pain. He is in a collar. Will obtain CT head and C-spine. His neurologic exam is unremarkable other than some very mild left lower extremity proximal weakness. Distal strength is intact. He is able to lift his left lower extremity off the stretcher but does so with more effort than on the right. Upper extremities are normal. Lungs are clear. Abdomen is benign. Was having abdominal pain and diarrhea yesterday. Weakness may be related to infectious process, dehydration. He reports both legs being too weak to hold him up. I do not think this is related to CVA. Will get laboratory studies, urinalysis, abdominal pelvic CT scan to investigate source of his weakness. His EKG on arrival shows sinus rhythm with prolonged OK, low voltage precordial leads, no acute ST changes per my read. 05:00 - Patient's white count is elevated 14.3. Hemoglobin and platelets are fine. His creatinine is elevated to 1.6 but BUN is 18. There is no recent baseline in our system. His electrolytes are otherwise normal. Liver function normal. Troponin normal. Lipase normal. CT of the head and cervical spine negative per preliminary radiology read. CT of the abdomen pelvis with suggestion of gallbladder distention and probable stone in the neck of the gallbladder. Urinalysis negative for infection. Repeat exam with some tenderness in the right upper quadrant with deep palpation. Patient does feel better after fluids. I will keep him n.p.o. for now. Fraciscon ordered and then will continue with LR at 125 once this is then. Will discuss with surgery. 06:00 - Discussed with Dr. Ventura. He will see patient in the ED this morning. Signed out to ED day physician pending surgical consult. Lab Data Lab results reviewed: Yes I reviewed the patient's lab results. Lab results narrative: see MDM ECG Data Attestation: I personally reviewed and interpreted this ECG (s) as follows: Prior ECG tracings: not available for review Interpretation: see EKG/MDM Quality:SDOH Health Related Social Needs: Health related social needs food insecurity (Z59.41) PFSH All Active Problems Right rotator cuff tendonitis (Acute) Cubital tunnel syndrome on right (Acute 03/16/18) Allergic rhinitis (Acute 11/09/14) Gait disorder (Chronic) Tubular adenoma of colon (Chronic) Glucose intolerance (Acute) Memory loss (Chronic) Depressive disorder (Chronic 11/09/14) Orthostatic hypotension (Acute 01/28/18) Peripheral polyneuropathy (Chronic 01/28/18) Osteoarthritis (Chronic) Medical History Obstructive sleep apnea (11/09/14) HAS C-PAP Obesity (11/09/14) Hyperlipidemia (12/08/14) Essential tremor (01/28/18) Chronic abdominal pain Hypothyroidism Gastric ulcer (01/31/14) EGD 12/2013 Surgical History Tonsillectomy RIGHT SHOULDER REPAIR (~05/2012) Open Carpal Tunnel release (~2007) B/L Nasal septoplasty (~2006) LEFT ANKLE SURGERY (~1987) Excision, Pilonidal Cyst (01/08/17) EYE SURGERY Tooth extraction GLAUCOMA LASER Colonoscopy - MAC (02/09/18) Colonoscopy - IV Sedation (02/09/18) 01/2016-Dr. Varela Tubular and tubulovillous adenomas BACK SURGERY (~2002) B/L ELBOW FX (~04/2013) Appendectomy Family History Mother , 93 Depression Cancer Father , 95 Heart disease Prostate cancer Brother Essential hypertension Maternal Grandfather , 75 Heart disease Paternal Grandfather Heart disease Maternal Grandmother , 60 No problems noted. 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 Pets and animals: No Sexually active: Yes Do you think of yourself as: straight/heterosexual Current gender identity: male What is your relationship status?: living with partner How often do you talk on the phone with friends or family?: three or more times per week How often do you get together with friends or relatives?: once per week How often do you attend pentecostalism or church services?: decline to answer Do you belong to any clubs or organized social groups?: no Panel score (0-1 are the most socially isolated patients): 2 What type of physical activity do you participate in: none Duration: decline to answer Frequency: decline to answer Ramona/Alevism: Non islam Special ramona needs: No Seatbelt use: always Drive intox or ride w/intox corrugated fastener driver: No Do you feel safe at home: Yes Do you feel safe in your relationship?: Yes
--- NOTE | 2024-12-05 02:30 | DI.CT_ITS ---
Exam(s) CT HEAD CERVICAL SPINE WO EXAM: CT HEAD CERVICAL SPINE WO CLINICAL HISTORY: fell out of bed with head/neck pain. TECHNIQUE: Imaging Protocol: Axial computed tomography images with coronal and sagittal reformatted images were created and reviewed COMPARISON: CT CT FACIAL WO from 02/14/2022 FINDINGS: CT Head: Ventricles and Extra axial spaces: Normal in size and morphology for the patient's age. Hemorrhage: None. Cerebral parenchyma: Areas of decreased attenuation in the white matter consistent with chronic micro vascular ischemic changes. No acute territorial infarct is present. Midline shift: None. Brainstem/Cerebellum: Normal. Calvarium: Normal. Visualized Paranasal sinuses/Mastoids: There is mild mucosal thickening in the visualized paranasal s inuses. The mastoid air cells are clear. Soft Tissues: Unremarkable. CT Cervical Spine: Bones: No acute fracture or subluxation. Age-appropriate degenerative changes are seen in the cervica l spine. There is reversal of the normal cervical lordosis. Portions of C7 and T1 were not included on this examination. Soft Tissues: Unremarkable. Lung Apices: Not included on this examination. IMPRESSION: 1. No acute intracranial process. 2. No acute fracture or subluxation in the cervical spine. RADIATION DOSE DELIVERED: 1,408.81mGy.cm Total DLP DATA REPOSITORY: All CT scans at this facility are submitted to the National Radiology Data Registry (NRDR) Dose Index Registry (DIR) with the [employer] (ACR). RADIATION OPTIMIZATION: All CT scans at this facility use at least one of these dose optimization te chniques: automated exposure control; mA and/or kV adjustment per patient size (includes targeted exa ms where dose is matched to clinical indication); or iterative reconstruction.
--- NOTE | 2024-12-05 02:30 | DI.CT_ITS ---
Exam(s) CT ABDOMEN PELVIS W EXAM: CT ABDOMEN PELVIS W CLINICAL HISTORY: abd pain/diarrhea TECHNIQUE: Imaging Protocol: Axial computed tomography images with coronal and sagittal reformatted images were created and reviewed. CONTRAST MATERIAL: Intravenous: Omnipaque 350 Contrast volume:100 mL Oral: No COMPARISON: No exams were available for comparison FINDINGS: ABDOMEN: Lung Bases: No acute abnormality. Liver: Normal density. There is several hypodensities seen in the liver likely reflecting small cysts . No suspicious hepatic masses are seen. Portal, Superior Mesenteric, and Splenic Veins: Unremarkable. Gallbladder and Biliary Tract: The gallbladder is distended. The density seen in the proximal gallbl adder appears to represent a fold in the gallbladder and not a stone on the coronal views. Pancreas: There is fatty atrophy of the pancreas. No pancreatic mass or peripancreatic fluid collect ions are seen. Spleen: There are few tiny hypodensities seen in the spleen. There are nonspecific. They may repres ent cysts or small hemangiomas. Adrenals: No masses seen. Kidneys: Normal size, contour and axis. Bilateral nephrolithiasis. No obstructive uropathy. Left re nal cyst. No follow-up is recommended. Abdominal Aorta: Abdominal portion non-dilated. Atherosclerotic calcification is present. Bowel: There is a redundant sigmoid colon. There is diverticulosis seen in the colon, but no evidenc e of acute diverticulitis. There is no evidence of bowel obstruction or bowel wall thickening. No e vidence of appendicitis. Peritoneal Cavity: No ascites, collection or mesenteric inflammatory response. No free air. Lymph Nodes: Within normal limits. Bones: Within normal limits for the patient's age. Soft Tissues: There is a small fat containing right inguinal hernia. PELVIS: Bladder: There is mild diffuse thickening of the wall of the urinary bladder. This may be due to und erdistention, but cystitis cannot be excluded. Reproductive Organs: Prostate gland is mildly enlarged. Lymph Nodes: Within normal limits. Bones: Within normal limits for the patient's age. IMPRESSION: 1. No acute abdominal or pelvic process. 2. Mild diffuse thickening of the wall of the urinary bladder. This may be due to underdistention, b ut cystitis cannot be excluded. Please correlate clinically. 3. Gallbladder distention without definite cholelithiasis. No biliary ductal dilatation. 4. Colonic diverticulosis without evidence of acute diverticulitis. No evidence of colitis or bowel obstruction. RADIATION DOSE DELIVERED: 1,596.32mGy.cm Total DLP DATA REPOSITORY: All CT scans at this facility are submitted to the National Radiology Data Registry (NRDR) Dose Index Registry (DIR) with the [employer] (ACR). RADIATION OPTIMIZATION: All CT scans at this facility use at least one of these dose optimization te chniques: automated exposure control; mA and/or kV adjustment per patient size (includes targeted exa ms where dose is matched to clinical indication); or iterative reconstruction.
[2024-12-05 02:51] LABS: Abs Immature Grans 0.09 10^3/uL (0.0-0.06); Absolute Basophil Count 0.07 10^3/uL (0.0-0.2); Absolute Lymphocyte Count 1.96 10^3/uL (1.2-3.4); Basophils % 0.5 %; Eosinophils % 2.1 %; HGB 17.1 g/dL (13.5-17.5); Immature Grans % 0.6 %; Lymphocytes % 13.7 %; MCH 28.3 pg (27.0-33.0); MCHC 32.9 % (32.0-36.0); MCV 86 fL (80-95); MPV 9.5 fL (8.0-11.0); Monocytes % 5.9 %; Neutrophils % 77.2 %; Platelet Count 214 10^3/uL (130-400); RBC 6.05 10^6/uL (4.36-5.78); RDW-SD 40.1 fL
[2024-12-05 02:54] LABS: Absolute Monocyte Count 0.84 10^3/uL (0.1-0.8); Absolute Neutrophil Count 11.04 10^3/uL (1.2-6.7)
[2024-12-05] MEDS: Normal Saline 1,000 ML 1000 ML IV (03:02)
[2024-12-05 03:07] LABS: ALT 47 U/L (16-63); AST 26 U/L (15-37); Albumin 4.2 g/dL (3.4-5.0); Alkaline Phosphatase 100 U/L (46-116); Anion Gap 10.7 mmol/L (3-11); BUN 18 mg/dL (7-18); Bilirubin, Total 0.5 mg/dL (0.2-1.0); CO2 26.3 mmol/L (21.0-32.0); CREATININE 1.6 mg/dL (0.70-1.30); Calcium 9.2 mg/dL (8.5-10.1); Chloride 104 mmol/L (98-107); Estimated GFR 44.65 (mL/min/1.73m2); Glucose 189 mg/dL (74-106); Lipase 70 U/L (<78); Potassium 4.2 mmol/L (3.5-5.1); Sodium 141 mmol/L (136-145); Total Protein 7.9 g/dL (6.4-8.2)
[2024-12-05 03:13] LABS: Magnesium 2.2 mg/dL; Troponin I 4 ng/L (<or=76)
[2024-12-05] MEDS: Normal Saline - Diluent 50 ML VIAL IJ (03:47)
[2024-12-05] MEDS: Omnipaque 350 MG/ML 100 ML BTL IJ (03:50)
--- NOTE | 2024-12-05 04:02 | DI.VRAD_ITS ---
PROCEDURE INFORMATION: Exam: CT Head Without Contrast Exam date and time: 12/05/2024 3:37 AM Age: 74 years old Clinical indication: Injury or trauma; Other: Ascites, multiple falls, bruises TECHNIQUE: Imaging protocol: Computed tomography of the head without contrast. COMPARISON: CT HEAD WO 01/18/2022 9:08 PM FINDINGS: Brain: No intracranial hemorrhage or intraparenchymal mass. Lundberg-white matter differentiation is preserved. No extra-axial fluid collection. There is no mass effect or shift of midline structures. Cerebral ventricles: No ventriculomegaly. Paranasal sinuses: Mild paranasal sinus mucosal thickening without fluid levels. Mastoid air cells: Visualized mastoid air cells are well aerated. Bones: Unremarkable. No acute fracture. Soft tissues: Unremarkable. IMPRESSION: No acute intracranial findings. PROCEDURE INFORMATION: Exam: CT Cervical Spine Without Contrast Exam date and time: 12/05/2024 3:37 AM Age: 74 years old Clinical indication: Injury or trauma; Other: Ascites, multiple falls, bruises TECHNIQUE: Imaging protocol: Computed tomography of the cervical spine without contrast. COMPARISON: CT FACIAL WO 02/14/2022 9:01 AM FINDINGS: Bones: Multilevel uncovertebral and facet joint hypertrophic changes with multilevel bilateral severe foraminal stenoses. Degenerative reversal of the normal cervical lordosis. Vertebral body heights are maintained. No fracture or acute malalignment. Lungs: Lung apices are normal. Soft tissues: Unremarkable. IMPRESSION: 1. No cervical spine fracture or focal subluxation. 2. Multilevel uncovertebral and facet joint hypertrophic changes with multilevel bilateral severe foraminal stenoses. Dictated and Authenticated by: Navi Tomlin MD. Orderin Flaquito Abrams MD
--- NOTE | 2024-12-05 04:16 | DI.VRAD_ITS ---
PROCEDURE INFORMATION: Exam: CT Abdomen And Pelvis With Contrast Exam date and time: 12/05/2024 3:41 AM Age: 74 years old Clinical indication: Other: Abd pain/diarrhea TECHNIQUE: Imaging protocol: Computed tomography of the abdomen and pelvis with contrast. Contrast material: OMNIPAQUE 350; Contrast volume: 100 ml; Contrast route: INTRAVENOUS (IV); COMPARISON: CR XR HIP LT COMPLETE AP PELVIS 02/11/2020 9:32 AM FINDINGS: Limitations: Extensive streak artifact, created at least in part by arm positioning. Liver: Liver partially obscured by streak artifact. Small indeterminate hypoattenuating hepatic lesions, incompletely characterized but most likely small cysts and/or hemangiomas. Gallbladder and biliary ducts: Prominent gallbladder distention. Suggestion of a tiny 1 mm calcified stone in the gallbladder neck. No biliary dilatation. Pancreas: Mild-moderate atrophy of the pancreas. Spleen: Indeterminate hypoattenuating splenic lesions, incompletely characterized but most likely small cysts and/or hemangiomas. Adrenal glands: Normal appearing adrenal glands. Kidneys and ureters: Nonobstructing renal calculi with the largest measuring 8 mm on the left. 2.5 cm left renal cyst. Adjacent smaller 6 mm indeterminate hypoattenuating left renal lesion on image 41 of series 6, not definitively characterized but likely an additional small cyst. No hydronephrosis. No obstructing ureteral stones. Stomach and bowel: Stomach partially distended with oral contrast. No small bowel dilatation to suggest obstruction. Colon almost completely evacuated and collapsed. No convincing evidence of diverticulitis or colitis. Appendix: Appendix not identified. Surgical material at the cecal apex suggesting a prior appendectomy. Correlation with surgical history recommended. Intraperitoneal space: No gross ascites or free air. Vasculature: Normal caliber abdominal aorta. Lymph nodes: No pathologically enlarged mesenteric, retroperitoneal, or pelvic sidewall lymph nodes. Urinary bladder: Urinary bladder partially collapsed but grossly unremarkable, as seen. Reproductive: Normal-appearing prostate gland and seminal vesicles. Bones/joints: No acute fracture seen among the bones of the abdomen or pelvis. Large vertebral hemangioma at T12. Discogenic degenerative changes at several levels. Soft tissues: Tiny fat-containing ventral hernia at the umbilicus, doubtful clinical significance. Small fat containing right inguinal region hernia. IMPRESSION: 1. Colon almost completely evacuated and collapsed, nonspecific but commonly seen in the setting of diarrhea. No convincing evidence of diverticulitis or colitis. 2. Prominent gallbladder distention. 1 mm gallstone faintly suggested. No biliary dilatation. Dictated and Authenticated by: Alberto Wells MD. Orderin Flaquito Abrams MD
[2024-12-05] MEDS: Lactated Ringers 1,000 ML 125 ML IV ×2 (04:45→13:33)
[2024-12-05 04:46] LABS: Bilirubin Small (Negative); Blood Moderate (Negative); Clarity Clear (Clear); Glucose Negative (Negative); Ketones Negative (Negative); Leukocyte Esterase Negative (Negative); Nitrite Negative (Negative); Urobilinogen 0.2 mg/dL (Up to 0.2); pH 5.5 (5-8)
[2024-12-05 04:49] LABS: Bacteria Rare HPF (Negative); C & S Indicated? No; Casts Negative LPF (Negative); Crystals Negative HPF (Negative); Epithelial Cells Rare HPF (Negative); Mucus Negative (Negative); WBC Negative HPF (0-5)
[2024-12-05 05:09] LABS: RBC Morphology Normal
--- NOTE | 2024-12-05 07:44 | W.SURGCON ---
Date of service: 12/05/24 Time of Service: 08:01 Assessment and Plan Assessment and plan (1) Diarrhea: Status: Acute Assessment and plan: His gallbladder certainly is distended on the CT scan, but it seems congruent with his history of severe diarrhea and no real oral intake through the course of yesterday. There is no secondary signs of cholecystitis such as pericholecystic fluid. Moreover, his LFTs are totally normal, and he is not at all tender over the gallbladder even with relatively deep palpation. I suspect Ezio really just has a severe enteritis, with dehydration resulting in some hemoconcentration of a mild leukocytosis. At this point, I think admission with rehydration through the course of today to make sure that he is able to keep up with the diarrhea is the most reasonable course of action. It is worth sending some stool for infectious diarrhea workup, although his risk factors sound relatively low for things such as Salmonella or C. difficile. I would allow him to have some full liquids today, and as long as he tolerates that, the diet could be advanced. We could always do a formal ultrasound tomorrow for better characterization of the gallbladder, but at this point, I think acute cholecystitis is less likely. History of Present Illness History of Present Illness Chief Complaint: Diarrhea Narrative: Ezio is a 74-year-old male. He came to the emergency department last night after falling out of bed. He tells me he had diarrhea all day yesterday through last night. While he was asleep, he had fecal urgency, and in an effort to get up out of bed, he lost his balance and fell to the ground. His had difficulty getting him up, so they called 911. In the emergency department, he underwent some basic labs and CT imaging. He was found to have a leukocytosis, and some mild acute kidney injury. CT scan showed a distended gallbladder, but was otherwise negative. He tells me has had intermittent episodes of diarrhea over the past few years. They tend to come on similar to this lasting a few days. He does say that this diarrhea was a little more foul-smelling than usual. He denies any melena or hematochezia. He denies any dyspepsia, or other upper GI symptoms. He does describe a little bit of abdominal pain or perhaps discomfort associated with this. It seems like it is focused mostly around the umbilicus. Review of Systems Constitutional Constitutional: Denies body ache(s), Reports fatigue, Denies fever(s) and Reports poor appetite Eyes Eyes: Reports system reviewed and no additional complaints, except as documented ENT Ears, Nose, Mouth, and Throat: Reports system reviewed and no additional complaints, except as documented Cardiovascular Cardiovascular: Denies chest pain and Denies dyspnea Respiratory Respiratory: Denies chest congestion, Denies cough and Denies dyspnea Gastrointestinal Gastrointestinal: Denies dyspepsia, Denies heartburn and Reports diarrhea Genitourinary Genitourinary: Reports system reviewed and no additional complaints, except as documented Musculoskeletal Musculoskeletal: Reports back pain and Reports muscle cramps Neurologic Neurologic: Reports system reviewed and no additional complaints, except as documented Psychiatric Psychiatric: Reports system reviewed and no additional complaints, except as documented Endocrine Endocrine: Reports fatigue Hematologic/Lymphatic Hematologic/Lymphatic: Denies easy bleeding and Denies easy bruising PFSH All Active Problems (Updated 12/05/24 @ 08:06 by Ney Ventura MD) Diarrhea (Acute) Acute dehydration (Acute) LUIS ALBERTO (acute kidney injury) (Acute) Right rotator cuff tendonitis (Acute) Cubital tunnel syndrome on right (Acute 03/16/18) Allergic rhinitis (Acute 11/09/14) Gait disorder (Chronic) Tubular adenoma of colon (Chronic) Glucose intolerance (Acute) Memory loss (Chronic) Depressive disorder (Chronic 11/09/14) Orthostatic hypotension (Acute 01/28/18) Peripheral polyneuropathy (Chronic 01/28/18) Osteoarthritis (Chronic) Medical History Obstructive sleep apnea (11/09/14) HAS C-PAP Obesity (11/09/14) Hyperlipidemia (12/08/14) Essential tremor (01/28/18) Chronic abdominal pain Hypothyroidism Gastric ulcer (01/31/14) EGD 12/2013 Surgical History Tonsillectomy RIGHT SHOULDER REPAIR (~05/2012) Open Carpal Tunnel release (~2007) B/L Nasal septoplasty (~2006) LEFT ANKLE SURGERY (~1987) Excision, Pilonidal Cyst (01/08/17) EYE SURGERY Tooth extraction GLAUCOMA LASER Colonoscopy - MAC (02/09/18) Colonoscopy - IV Sedation (02/09/18) 01/2016-Dr. Varela Tubular and tubulovillous adenomas BACK SURGERY (~2002) B/L ELBOW FX (~04/2013) Appendectomy Family History Mother , 93 Depression Cancer Father , 95 Heart disease Prostate cancer Brother Essential hypertension Maternal Grandfather , 75 Heart disease Paternal Grandfather Heart disease Maternal Grandmother , 60 No problems noted. 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 Pets and animals: No Sexually active: Yes Do you think of yourself as: straight/heterosexual Current gender identity: male What is your relationship status?: living with partner How often do you talk on the phone with friends or family?: three or more times per week How often do you get together with friends or relatives?: once per week How often do you attend bahai or taoist services?: decline to answer Do you belong to any clubs or organized social groups?: no Panel score (0-1 are the most socially isolated patients): 2 What type of physical activity do you participate in: none Duration: decline to answer Frequency: decline to answer Ramona/Mandaeism: Non lutheran Special ramona needs: No Seatbelt use: always Drive intox or ride w/intox airport shuttle driver: No Do you feel safe at home: Yes Do you feel safe in your relationship?: Yes Exam Const General: cooperative, comfortable and no acute distress Nutritional Appearance: obese Orientation: alert, awake and oriented x3 HENMT Head: normal to inspection and normocephalic Eyes General: appearance normal, both eyes and all related structures Neck Neck: normal visual inspection, full ROM and no lymphadenopathy Resp Effort & Inspection: normal respiratory effort and able to speak in complete sentences Auscultation: clear to auscultation bilaterally Cardio Rate: regular rate Rhythm: regular rhythm Heart Sounds: S1 normal and S2 normal GI Inspection: normal to inspection and non-distended Palpation: soft, no guarding and nontender Percussion: normal to percussion Auscultation: hyperactive bowel sounds Results Last Vital Signs Temp 97.4 F L 12/05/24 02:26 Pulse 72 12/05/24 07:30 Resp 16 12/05/24 07:30 BP 85/61 L 12/05/24 07:00 Pulse Ox 97 12/05/24 07:30 Labs 12/05/24 02:34 12/05/24 02:34 Labs: Laboratory Results - last 24 hr 12/05/24 12/05/24 02:34 04:24 WBC 14.30 H RBC 6.05 H Hgb 17.1 Hct 52.0 H MCV 86 MCH 28.3 MCHC 32.9 RDW 13.0 Plt Count 214 MPV 9.5 Immature Gran % 0.6 Neutrophils % 77.2 Lymphocytes % 13.7 Monocytes % 5.9 Eosinophils % 2.1 Basophils % 0.5 Nucleated RBC % 0.0 Absolute Neutrophils 11.04 H Absolute Lymphocytes 1.96 Absolute Monocytes 0.84 H Absolute Eosinophils 0.30 Absolute Basophils 0.07 RBC Morphology Normal Sodium 141 Potassium 4.2 Chloride 104 Carbon Dioxide 26.3 Anion Gap 10.7 BUN 18 Creatinine 1.6 H Est GFR (CKD-EPI 2020) 44.65 Glucose 189 H Calcium 9.2 Magnesium 2.2 Total Bilirubin 0.5 AST 26 ALT 47 Alkaline Phosphatase 100 Troponin I 4 Total Protein 7.9 Albumin 4.2 Lipase 70 Urine Color Yellow Urine Clarity Clear Urine pH 5.5 Ur Specific [place] 1.020 Urine Protein 30 H Urine Ketones Negative Urine Blood Moderate H Urine Nitrite Negative Urine Bilirubin Small H Urine Urobilinogen 0.2 Ur Leukocyte Esterase Negative Urine RBC 5-10 H Urine WBC Negative Ur Epithelial Cells Rare Urine Crystals Negative Urine Bacteria Rare Urine Casts Negative Urine Mucus Negative Ur Culture Indicated? No Urine Glucose Negative Imaging Abdomen CT scan report/results: report reviewed and image reviewed CT scan - pelvis: report reviewed and image reviewed
--- NOTE | 2024-12-05 07:49 | W.EDPROG ---
Date of service: 12/05/24 Time of Service: 07:51 Medical Decision Making Patient seen by general surgeon Dr. Ventura who does not feel this is cholecystitis, recommends admission to medicine for dehydration which I feel is reasonable given his LUIS ALBERTO and his general weakness as well. Will discuss with hospitalist about admission. Quality:SDOH Health Related Social Needs: Health related social needs food insecurity (Z59.41) Discharge Plan Disposition Patient Disposition: [facility]mit to [facility] Condition: Stable Discharge Details Chief Complaint: Fall/Non TraumaCriteria Clinical Impression: LUIS ALBERTO (acute kidney injury), Acute dehydration Primary Care Provider: Roberta Purdy ED Provider: Tim Weiner Home Meds and New Rx's Prescriptions: No Action fexofenadine [Allergy Relief (fexofenadine)] 180 mg tablet 180 mg PO DAILY escitalopram oxalate 20 mg tablet 20 mg PO DAILY donepezil 10 mg tablet 10 mg PO DAILY Qty: 90 3RF memantine 10 mg tablet 10 mg PO BID Qty: 180 3RF docusate sodium 100 mg capsule 100 mg PO BID polyethylene glycol 3350 [Miralax] 17 gram/dose powder 17 g PO DAILY PRN carboxymethylcellulose sodium 0.25 % dropperette 1 drp ophthalmic (eye) BID trazodone 100 MG tablet 300 mg PO HS fluticasone propionate 16 GM spray,suspension 50 mcg NS DAILY PRN bupropion HCl 300 mg tablet extended release 24 hr 450 mg PO DAILY simvastatin 20 mg tablet 20 mg PO HS liothyronine 5 MCG tablet 25 mcg PO DAILY Qty: 0 0RF Patient Comments: 12/02/16: Pt takes 2 tabs daily. -BR meloxicam 15 mg Tablet 15 mg PO DAILY ibuprofen 600 mg tablet 600 mg PO TID PRN (Reason: pain) Qty: 30 0RF acetaminophen 500 mg capsule 1,000 mg PO Q8H PRN PRNQty: 90 0RF
--- NOTE | 2024-12-05 11:15 | W.PM.HP.N ---
Date of service: 12/05/24 Time of Service: 11:15 Assessment and Plan Assessment and plan (1) LUIS ALBERTO (acute kidney injury): Status: Acute Assessment and plan: thought To be prerenal secondary to GI losses Continue IV hydration Avoid nephrotoxic drugs, re total grupo dose as needed Monitor intake and output and fluid volume status closely Further evaluation if does not respond to IV hydration (2) Diarrhea: Status: Acute Assessment and plan: Stool sampling if continues to have diarrhea Continue IV hydration and electrolyte repletion as needed Gallbladder ultrasound in the a.m., will need to be n.p.o. after midnight for ultrasound Full liquids advance as tolerated States he is due for his colonoscopy Outpatient follow up (3) Hypothyroidism: Status: Chronic Assessment and plan: Last TSH 1.48 in oct 2021 Continue home meds and check level (4) Mild cognitive impairment: Status: Acute Assessment and plan: Continue home medications (5) Depressive disorder: Status: Chronic Assessment and plan: Continue home medications (6) Hyperlipidemia: Status: Acute Assessment and plan: Continue statin Anticipated discharge to home with no new services once medically stable discussed with DR Rush History of Present Illness Narrative: This is a 74-year-old male patient past medical history of Crohn's/IBS per his report who presented to the emergency department with diarrhea or illness. He reports that he typically has bouts of diarrhea but this seems exacerbated from his baseline. He has not had any vomiting. No reports of blood in his stool, not black tarry. His workup in the emergency department included a CAT scan which did show no acute intra-abdominal or pelvic process. Gallbladder was distended without definite cholelithiasis no biliary ductal dilatation colonic diverticulosis without acute diverticulitis no evidence of colitis or bowel obstruction. A surgical consultation was obtained and is not thought to be due to acute cholecystitis in the setting of normal LFTs and no tenderness over his right upper quadrant with deep inspiration. Recommendations are for observation on the medical surgical unit with full liquids advance diet as tolerated. Will continue IV hydration symptom management and gallbladder ultrasound in the a.m. Review of Systems All systems reviewed & are unremarkable except as noted in HPI and below PFSH All Active Problems (Updated 12/05/24 @ 11:17 by Rosa Weinberg NP) Hyperlipidemia (Acute 12/08/14) Mild cognitive impairment (Acute) Hypothyroidism (Chronic) Diarrhea (Acute) Acute dehydration (Acute) LUIS ALBERTO (acute kidney injury) (Acute) Right rotator cuff tendonitis (Acute) Cubital tunnel syndrome on right (Acute 03/16/18) Allergic rhinitis (Acute 11/09/14) Gait disorder (Chronic) Tubular adenoma of colon (Chronic) Glucose intolerance (Acute) Memory loss (Chronic) Depressive disorder (Chronic 11/09/14) Orthostatic hypotension (Acute 01/28/18) Peripheral polyneuropathy (Chronic 01/28/18) Osteoarthritis (Chronic) Medical History Obstructive sleep apnea (11/09/14) HAS C-PAP Obesity (11/09/14) Hyperlipidemia (12/08/14) Essential tremor (01/28/18) Chronic abdominal pain Hypothyroidism Gastric ulcer (01/31/14) EGD 12/2013 Surgical History Tonsillectomy RIGHT SHOULDER REPAIR (~05/2012) Open Carpal Tunnel release (~2007) B/L Nasal septoplasty (~2006) LEFT ANKLE SURGERY (~1987) Excision, Pilonidal Cyst (01/08/17) EYE SURGERY Tooth extraction GLAUCOMA LASER Colonoscopy - MAC (02/09/18) Colonoscopy - IV Sedation (02/09/18) 01/2016-Dr. Varela Tubular and tubulovillous adenomas BACK SURGERY (~2002) B/L ELBOW FX (~04/2013) Appendectomy Family History Mother , 93 Depression Cancer Father , 95 Heart disease Prostate cancer Brother Essential hypertension Maternal Grandfather , 75 Heart disease Paternal Grandfather Heart disease Maternal Grandmother , 60 No problems noted. 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 Pets and animals: No Sexually active: Yes Do you think of yourself as: straight/heterosexual Current gender identity: male What is your relationship status?: living with partner How often do you talk on the phone with friends or family?: three or more times per week How often do you get together with friends or relatives?: once per week How often do you attend latter day or lutheran services?: decline to answer Do you belong to any clubs or organized social groups?: no Panel score (0-1 are the most socially isolated patients): 2 What type of physical activity do you participate in: none Duration: decline to answer Frequency: decline to answer Ramona/Sikhism: Non jainism Special ramona needs: No Seatbelt use: always Drive intox or ride w/intox medical van driver: No Do you feel safe at home: Yes Do you feel safe in your relationship?: Yes Meds Allergies and Home Medications Allergies Allergy/AdvReac Type Severity Reaction Status Date / Time No Known Allergies Allergy Verified 12/05/24 02:26 Home Medications ?Medication ?Instructions ?Recorded ?Confirmed ?Type trazodone 100 mg tablet 300 mg PO HS 11/17/14 12/05/24 History fluticasone propionate 50 50 mcg NS DAILY PRN 10/30/15 12/05/24 History mcg/actuation nasal spray,suspension simvastatin 20 mg tablet 20 mg PO HS 10/22/19 12/05/24 History fexofenadine 180 mg tablet 180 mg PO DAILY 03/12/21 12/05/24 History (Allergy Relief (fexofenadine)) meloxicam 15 mg tablet 15 mg PO DAILY 04/13/21 12/05/24 History acetaminophen 500 mg capsule 1,000 mg (2 x 500 mg) PO Q8H PRN 04/17/21 12/05/24 Rx PRN #90 caps ibuprofen 600 mg tablet 600 mg PO TID PRN pain #30 tabs 04/17/21 12/05/24 Rx liothyronine 5 mcg tablet 25 mcg (5 x 5 mcg) PO DAILY #0 10/15/21 12/05/24 Rx tab-caps bupropion HCl 300 mg 24 hr tablet, 450 mg PO DAILY 06/15/24 12/05/24 History extended release donepezil 10 mg tablet 10 mg PO DAILY #90 tabs 06/15/24 12/05/24 Rx escitalopram oxalate 20 mg tablet 20 mg PO DAILY 06/15/24 12/05/24 History memantine 10 mg tablet 10 mg PO BID #180 tabs 06/15/24 12/05/24 Rx carboxymethylcellulose sodium 0.25 1 drp ophthalmic (eye) BID 10/12/24 12/05/24 History % eye drops in a dropperette docusate sodium 100 mg capsule 100 mg PO BID 10/12/24 12/05/24 History polyethylene glycol 3350 17 17 g PO DAILY PRN 10/12/24 12/05/24 History gram/dose oral powder (Miralax) Exam Narrative Exam Narrative: Following male stated age no acute distress head is atraumatic eyes nonicteric noninjected oral mucosas moist neck full range of motion cardiovascular regular rate and rhythm respirations even unlabored abdomen is obese soft tender over the lower abdomen, no pain over right upper quad. Old midline incision well-healed neurologic he is awake alert oriented no focal deficits psychiatric appropriate mood and affect skin no rashes or lesions Results Labs 12/05/24 02:34 12/05/24 02:34 Labs: Laboratory Results - last 24 hr 12/05/24 12/05/24 02:34 04:24 WBC 14.30 H RBC 6.05 H Hgb 17.1 Hct 52.0 H MCV 86 MCH 28.3 MCHC 32.9 RDW 13.0 Plt Count 214 MPV 9.5 Immature Gran % 0.6 Neutrophils % 77.2 Lymphocytes % 13.7 Monocytes % 5.9 Eosinophils % 2.1 Basophils % 0.5 Nucleated RBC % 0.0 Absolute Neutrophils 11.04 H Absolute Lymphocytes 1.96 Absolute Monocytes 0.84 H Absolute Eosinophils 0.30 Absolute Basophils 0.07 RBC Morphology Normal Sodium 141 Potassium 4.2 Chloride 104 Carbon Dioxide 26.3 Anion Gap 10.7 BUN 18 Creatinine 1.6 H Est GFR (CKD-EPI 2020) 44.65 Glucose 189 H Calcium 9.2 Magnesium 2.2 Total Bilirubin 0.5 AST 26 ALT 47 Alkaline Phosphatase 100 Troponin I 4 Total Protein 7.9 Albumin 4.2 Lipase 70 Urine Color Yellow Urine Clarity Clear Urine pH 5.5 Ur Specific [place] 1.020 Urine Protein 30 H Urine Ketones Negative Urine Blood Moderate H Urine Nitrite Negative Urine Bilirubin Small H Urine Urobilinogen 0.2 Ur Leukocyte Esterase Negative Urine RBC 5-10 H Urine WBC Negative Ur Epithelial Cells Rare Urine Crystals Negative Urine Bacteria Rare Urine Casts Negative Urine Mucus Negative Ur Culture Indicated? No Urine Glucose Negative Last Vital Signs Temp 36.4 C L 12/05/24 10:18 Pulse 76 12/05/24 10:18 Resp 16 12/05/24 10:18 BP 112/60 12/05/24 10:18 Pulse Ox 94 12/05/24 10:18 Time Spent Time spent with Patient: 55-74 minutes Time was spent: preparing to see the patient(eg.review tests), obtaining and/or reviewing separately otained hiistory, ordering medications,tests, procedures, indepentently interpreting results and counseling the patient
[2024-12-05] MEDS: Fexofenadine 180 MG TAB PO (12:15)
[2024-12-05] MEDS: Refresh PLUS Eye Drops 0.4ml OP ×2 (12:15→19:55)
[2024-12-05] MEDS: Enoxaparin 40 MG/0.4 ML SYR SC (12:15)
[2024-12-05] MEDS: Memantine 5 MG TAB 10 MG PO ×2 (12:16→19:54)
--- NOTE | 2024-12-05 12:19 | W.PC.ACHO ---
Registration Status: Primary Language: Preferred Language: ED Information & Data Chief Complaint Fall/Non TraumaCriteria 12/05/24 02:31 Chief Complaint Fall/Non TraumaCriteria 12/05/24 02:26 Triage Note BIBEMS s/p fall from getting 12/05/24 02:26 OOB to BR. Down for ~15min before called EMS. ~ 24hrs of feeling weak w/ abd pain, poor PO intake and general malaise. C/o head and neck pain. - blood thinners, -LOC Medical / Surgical History (Last Reviewed 12/05/24 @ 02:29 by Jose Alberto Huddleston MD) Obstructive sleep apnea (11/09/14) Obesity (11/09/14) Essential tremor (01/28/18) Chronic abdominal pain Gastric ulcer (01/31/14) (Last Reviewed 12/05/24 @ 02:29 by Jose Alberto Huddleston MD) Tonsillectomy RIGHT SHOULDER REPAIR (~05/2012) Open Carpal Tunnel release (~2007) Nasal septoplasty (~2006) LEFT ANKLE SURGERY (~1987) Excision, Pilonidal Cyst (01/08/17) EYE SURGERY Tooth extraction Colonoscopy - MAC (02/09/18) Colonoscopy - IV Sedation (02/09/18) BACK SURGERY (~2002) B/L ELBOW FX (~04/2013) Appendectomy Most Recent Vital Signs Temperature 36.4 C L 12/05/24 11:03 Temperature Source Temporal Artery Scan 12/05/24 10:18 Pulse 76 12/05/24 11:03 Pulse Rhythm Regular 12/05/24 11:03 Pulse 66 12/05/24 09:30 Respiratory Rate 16 12/05/24 11:03 Respiratory Effort Normal 12/05/24 11:03 Respiratory Depth Normal 12/05/24 11:03 Respiratory Pattern Normal 12/05/24 11:03 Blood Pressure 112/60 12/05/24 11:03 Blood Pressure Mean 75 12/05/24 09:01 Blood Pressure Position Supine 12/05/24 02:26 Pulse Oximetry 94 12/05/24 11:03 Oxygen Delivery Method Room Air 12/05/24 11:03 Oxygen Flow Rate 0 12/05/24 11:03 Pain Level 3 12/05/24 11:03 Comment sleeping 12/05/24 07:00 Allergies No Known Allergies Allergy (Verified 12/05/24 02:26) Precautions Isolation Standard precaution 12/05/24 02:31 Active Medications Generic Name Dose Route Start Last Admin Trade Name Lyndsey PRN Reason Stop Dose Admin Carboxymethylcellulose Sodium 0 each 12/05/24 08:30 12/05/24 12:15 Refresh Plus Eye Drops 0.4ml OP 1 drp BID KEVEN Administration Enoxaparin Sodium 40 mg 12/05/24 08:30 12/05/24 12:15 Enoxaparin 40 Mg/0.4 Ml Syr SC 40 mg Q24H KEVEN Administration Fexofenadine HCl 180 mg 12/05/24 08:30 12/05/24 12:15 Fexofenadine 180 Mg Tab PO 180 mg DAILY KEVEN Administration Ringer's Solution 1,000 mls @ 125 mls/hr 12/05/24 04:30 12/05/24 04:45 IV 125 mls/hr INFUSION KEVEN Administration Iohexol 100 ml 12/05/24 04:00 12/05/24 03:50 Omnipaque 350 Mg/Ml 100 Ml Btl IJ 01/04/25 23:59 100 ml DIRECTED KEVEN Administration Memantine 10 mg 12/05/24 08:30 12/05/24 12:16 Memantine 5 Mg Tab PO 10 mg BID KEVEN Administration Sodium Chloride 0 ml 12/05/24 08:30 12/05/24 12:16 Normal Saline Flush 10 Ml Syr IVP Not Given BID KEVEN Sodium Chloride 50 ml 12/05/24 04:00 12/05/24 03:47 Normal Saline - Diluent 50 Ml Vial IJ 50 ml .FOR DI USE KEVEN Administration IV IV Catheter Type [Right Saline Lock Antecubital] IV Catheter Gauge [Right 20 Antecubital] Diet Orders Category Date Time Status Regular/Normal [DIET] Nutrition 12/05/24 Lunch Active Diagnostics 12/05/24 12/05/24 Range/Units 04:24 02:34 WBC 14.30 H (4.4-10.8) 10^3/uL RBC 6.05 H (4.36-5.78) 10^6/uL Hgb 17.1 (13.5-17.5) g/dL Hct 52.0 H (40.0-50.0) % MCV 86 (80-95) fL MCH 28.3 (27.0-33.0) pg MCHC 32.9 (32.0-36.0) % RDW 13.0 (11.8-14.1) % Plt Count 214 (130-400) 10^3/uL MPV 9.5 (8.0-11.0) fL Immature Gran % 0.6 % Neutrophils % 77.2 % Lymphocytes % 13.7 % Monocytes % 5.9 % Eosinophils % 2.1 % Basophils % 0.5 % Nucleated RBC % 0.0 (0.0-0.3) % Absolute Neutrophils 11.04 H (1.2-6.7) 10^3/uL Absolute Lymphocytes 1.96 (1.2-3.4) 10^3/uL Absolute Monocytes 0.84 H (0.1-0.8) 10^3/uL Absolute Eosinophils 0.30 (0.0-0.7) 10^3/uL Absolute Basophils 0.07 (0.0-0.2) 10^3/uL RBC Morphology Normal Sodium 141 (136-145) mmol/L Potassium 4.2 (3.5-5.1) mmol/L Chloride 104 (98-107) mmol/L Carbon Dioxide 26.3 (21.0-32.0) mmol/L Anion Gap 10.7 (3-11) mmol/L BUN 18 (7-18) mg/dL Creatinine 1.6 H (0.70-1.30) mg/dL Est GFR (CKD-EPI 2020) 44.65 (mL/min/1.73m2) Glucose 189 H (74-106) mg/dL Calcium 9.2 (8.5-10.1) mg/dL Magnesium 2.2 mg/dL Total Bilirubin 0.5 (0.2-1.0) mg/dL AST 26 (15-37) U/L ALT 47 (16-63) U/L Alkaline Phosphatase 100 (46-116) U/L Troponin I 4 (<or=76) ng/L Total Protein 7.9 (6.4-8.2) g/dL Albumin 4.2 (3.4-5.0) g/dL Lipase 70 (<78) U/L Urine Color Yellow (Yellow) Urine Clarity Clear (Clear) Urine pH 5.5 (5-8) Ur Specific [place] 1.020 (1.005-1.025) Urine Protein 30 H (Neg-Trace) mg/dL Urine Ketones Negative (Negative) mg/dL Urine Blood Moderate H (Negative) Urine Nitrite Negative (Negative) Urine Bilirubin Small H (Negative) Urine Urobilinogen 0.2 (Up to 0.2) mg/dL Ur Leukocyte Esterase Negative (Negative) Urine RBC 5-10 H (0-2) HPF Urine WBC Negative (0-5) HPF Ur Epithelial Cells Rare (Negative) HPF Urine Crystals Negative (Negative) HPF Urine Bacteria Rare (Negative) HPF Urine Casts Negative (Negative) LPF Urine Mucus Negative (Negative) Ur Culture Indicated? No Urine Glucose Negative (Negative) mg/dL Path Cons Comment Pending [id number] Documentation Fingerstick Glucose Start: 12/05/24 02:35 Freq: Status: Active Protocol: Activity Type Activity Date Activity User E-sign Co-sign Detail Recorded Client Recorded Date Recorded By Document 12/05/24 02:33 BKG DAEMON(3) [id number] 12/05/24 02:35 BKG DAEMON(4) Intake and Output - 24 Hour Total 12/05/24 02:16 thru 12/05/24 11:16 Intake Total 1050 Balance 1050 Weight 125.3 kg Intake: IV 1050 Falls Risk Assessment History of Falls Admit Due to Fall 12/05/24 11:03 Contributing Factors Confusion,Unstable, 12/05/24 02:31 Impairments Ambulatory Aids Independent 12/05/24 11:03 Tubes/Lines W/no contributing factors 12/05/24 11:03 Gait Evaluation No gait disturbance 12/05/24 11:03 Cognition No cognitive impairment 12/05/24 11:03 Fall Total Score 35 12/05/24 11:03 Level of Risk Moderate Risk 12/05/24 11:03 Problems (Last Reviewed 12/05/24 @ 02:29 by Jose Alberto Huddleston MD) Hyperlipidemia (Acute 12/08/14) Mild cognitive impairment (Acute) Hypothyroidism (Chronic) Diarrhea (Acute) LUIS ALBERTO (acute kidney injury) (Acute) Depressive disorder (Chronic 11/09/14) v v v v v v v v v Sending and/or Receiving Nurses: Please use comment section below to note any information pertinent to the patient hand-off not included above. Information / Comments: Report received from: Report received from Mile Bailey (greenhouse worker).
[2024-12-05] MEDS: traZODone 100 MG TAB 300 MG PO (19:53)
[2024-12-05] MEDS: Simvastatin 20 MG TAB PO (19:54)
[2024-12-05] MEDS: Normal Saline Flush 10 ML SYR IVP (19:56)
--- NOTE | 2024-12-06 | DI.US_ITS ---
Exam(s) US ABDOMEN LIMITED EXAM: US ABDOMEN LIMITED CLINICAL HISTORY: diarrhea, abd pain, ? cholecystitis TECHNIQUE: Ultrasound abdomen performed using standard protocol. COMPARISON: CT CT ABDOMEN PELVIS W from 12/05/2024 FINDINGS: LIVER: Increased echogenicity consistent with moderate hepatic steatosis. cysts are noted. No suspi cious liver lesions are seen. GALLBLADDER: 1.9 centimeter mobile stone. No evidence of wall thickening. No pericholecystic fluid i dentified. BONNER'S SIGN: Negative. BILIARY SYSTEM: No intrahepatic or extrahepatic biliary ductal dilation. Right KIDNEY: Right kidney is normal in size. No evidence of renal calculi. No evidence of hydroneph rosis. No renal mass or cyst identified. PANCREAS: Normal where visualized. ABDOMINAL AORTA AND IVC: Visualized portions normal caliber. ASCITES: None seen. IMPRESSION: Single mobile gallstone. No evidence of wall thickening or biliary dilatation. DATA REPOSITORY:
[2024-12-06] MEDS: Lactated Ringers 1,000 ML 75 ML IV (01:14)
[2024-12-06 04:45] VITALS: BP 107/57; PULSE 60; RESP 14; TEMP 36.4; O2SAT 97
[2024-12-06] MEDS: Liothyronine 5 MCG TAB 25 MCG PO (05:46)
[2024-12-06 07:39] LABS: Abs Immature Grans 0.03 10^3/uL (0.0-0.06); Absolute Basophil Count 0.05 10^3/uL (0.0-0.2); Absolute Eosinophil Count 0.35 10^3/uL (0.0-0.7); Absolute Lymphocyte Count 2.62 10^3/uL (1.2-3.4); Absolute Monocyte Count 0.75 10^3/uL (0.1-0.8); Absolute Neutrophil Count 3.65 10^3/uL (1.2-6.7); Basophils % 0.7 %; Eosinophils % 4.7 %; HCT 44.2 % (40.0-50.0); HGB 14.7 g/dL (13.5-17.5); Immature Grans % 0.4 %; Lymphocytes % 35.2 %; MCH 28.3 pg (27.0-33.0); MCHC 33.3 % (32.0-36.0); MCV 85 fL (80-95); MPV 9.8 fL (8.0-11.0); Monocytes % 10.1 %; Neutrophils % 48.9 %; Platelet Count 185 10^3/uL (130-400); RBC 5.19 10^6/uL (4.36-5.78); RDW 12.9 % (11.8-14.1); RDW-SD 39.9 fL; WBC 7.45 10^3/uL (4.4-10.8)
[2024-12-06] MEDS: Refresh PLUS Eye Drops 0.4ml OP (07:46)
[2024-12-06] MEDS: Enoxaparin 40 MG/0.4 ML SYR SC (07:46)
[2024-12-06] MEDS: Normal Saline Flush 10 ML SYR IVP (07:46)
[2024-12-06] MEDS: Fexofenadine 180 MG TAB PO (07:47)
[2024-12-06] MEDS: Escitalopram 20 MG TAB PO (07:47)
[2024-12-06] MEDS: Memantine 5 MG TAB 10 MG PO (07:47)
[2024-12-06 07:53] LABS: Anion Gap 7.6 mmol/L (3-11); BUN 14 mg/dL (7-18); CO2 27.4 mmol/L (21.0-32.0); Calcium 8.6 mg/dL (8.5-10.1); Chloride 110 mmol/L (98-107); Estimated GFR 78.49 (mL/min/1.73m2); Glucose 111 mg/dL (74-106); Potassium 3.8 mmol/L (3.5-5.1); Sodium 145 mmol/L (136-145)
[2024-12-06 07:56] VITALS: BP 124/80; PULSE 61; RESP 16; TEMP 36.5; O2SAT 95
--- NOTE | 2024-12-06 10:10 | INITIAL_ITS ---
Date of service: 12/06/24 Time of Service: 10:10 Care Management Initial Assmt Initial Assessment Reason for Hospitalization: Colitis, LUIS ALBERTO Functional Status/Living Situation Patient Presentation: Ezio was sitting up in his chair visiting with his when CM arrived. He was pleasant and willing to engage in conversation. Ezio presented to the ED after falling out of bed striking his head with no loss of consciousness. Patient reports feeling extremely weak and had difficulty even getting out of bed. He was unable to get up off the floor even with the help of his . He is robert shields living in [place] with his Noemí and their cat, in a single family home. Noemí has a daughter that acts as a natural support for the both of them, and she lives locally. Per Ezio, he is independent at baseline; including driving. 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 [facility] and [facility] many [facility] from them, but maintains a PCP locally as well. Per Noemí, Ezio has been seeing an [facility] at [facility] [place] for gastroenterology, he is requesting that CM fax his records to them and Noemí will provide the information to do so. Additionally, [facility] stay at [facility]. 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) Instrumental Activities of Daily Living (ADLs): Independent Medications Medication Management: No Issues/Barriers identified Physical Functioning/Mobility Assistive Device: none identified Advance Directives Advance Directives: Do you have an Advance Directive: Y 11/22/15 13:42 AD On File at [facility]: Y 11/22/15 13:42 Date Asked 11/21/15 12/17/19 14:41 AD Date Reviewed 12/05/24 12/05/24 07:47 COLST On File at [facility] COLST Date Scanned Code Status Resuscitation Status Full Code Insurance Coverage/Financial Issues Insurance: Medicare parts A & B, for life Financial Issues: None Identified Care Team Visit Care Team Role Provider Type Beth Myers NP MD [facility] STAFF PHYSICIAN Roberta Purdy, HOT OILER Primary Care Provider NURSE PRACTITIONER Tim Weiner MD Emergency Provider [facility] STAFF PHYSICIAN Erik Rush Admit Provider [facility] STAFF PHYSICIAN Attending Provider Discharge Potential Discharge Needs: PCP F/U Appt and Other (GI HOT OILER) Patient/Family Education Needs: Review discharge instructions, discuss Ask Me Three Transportation: Private vehicle (Noemí) Plan: Ezio will return home today with no new services, once medically ready. He will follow up with his PCP and GI provider and continue per his plan of care. Ezio will transport privately with Noemí. Social Determinants of Health Screening Social Determinants of Health last assessed: 12/06/24 Will the Patient Participate in the Screening?: Yes Do you worry about having a steady place to live?: no Problems where you live: no known problems In the past 12 months, have you had to go without electric, gas, oil or water in your home?: no Have you or anyone in your house had to go without enough food to eat?: no Has lack of transportation kept you from medical appointments or from doing things needed for daily living?: no Has anyone in your life made you feel unsafe or unsupported?: no How hard is it for you to pay for the very basics like food, housing, medical care, and heating? Would you say it is:: Not hard at all Do you want help finding or keeping work or a job?: I do not need or want help If for any reason you need help with day-to-day activities such as bathing, preparing meals, shopping, managing finances, etc., do you get the help you need?: I get all the help I need How often do you feel lonely or isolated from those around you?: Sometimes Do you speak a language other than Danish at home?: No Does the patient want assistance with any of the above?: No Health Related Social Needs Health related social needs: food insecurity (Z59.41) and feeling lonely/isolated (Z60.8) PFSH All Active Problems (Updated 12/06/24 @ 13:42 by Beth Myers NP) Hyperlipidemia (Chronic 12/08/14) Mild cognitive impairment (Chronic) Hypothyroidism (Chronic) Acute dehydration (Acute) Right rotator cuff tendonitis (Acute) Cubital tunnel syndrome on right (Acute 03/16/18) Allergic rhinitis (Acute 03/11/15) Gait disorder (Chronic) Tubular adenoma of colon (Chronic) Glucose intolerance (Acute) Memory loss (Chronic) Depressive disorder (Chronic 11/09/14) Orthostatic hypotension (Acute 01/28/18) Peripheral polyneuropathy (Chronic 01/28/18) Osteoarthritis (Chronic) Medical History Obstructive sleep apnea (11/09/14) HAS C-PAP Obesity (11/09/14) Hyperlipidemia (12/08/14) Essential tremor (01/28/18) Chronic abdominal pain Hypothyroidism Gastric ulcer (01/31/14) EGD 12/2013 Surgical History Tonsillectomy RIGHT SHOULDER REPAIR (~05/2012) Open Carpal Tunnel release (~2007) B/L Nasal septoplasty (~2006) LEFT ANKLE SURGERY (~1987) Excision, Pilonidal Cyst (01/08/17) EYE SURGERY Tooth extraction GLAUCOMA LASER Colonoscopy - MAC (02/09/18) Colonoscopy - IV Sedation (02/09/18) 01/2016-Dr. Varela Tubular and tubulovillous adenomas BACK SURGERY (~2002) B/L ELBOW FX (~04/2013) Appendectomy Family History Mother , 93 Depression Cancer Father , 95 Heart disease Prostate cancer Brother Essential hypertension Maternal Grandfather , 75 Heart disease Paternal Grandfather Heart disease Maternal Grandmother , 60 No problems noted. 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 Pets and animals: No Sexually active: Yes Do you think of yourself as: straight/heterosexual Current gender identity: male What is your relationship status?: living with partner How often do you talk on the phone with friends or family?: three or more times per week How often do you get together with friends or relatives?: once per week How often do you attend yazdanism or caodaism services?: decline to answer Do you belong to any clubs or organized social groups?: no Panel score (0-1 are the most socially isolated patients): 2 What type of physical activity do you participate in: none Duration: decline to answer Frequency: decline to answer Ramona/Mormonism: Non religion Special ramona needs: No Seatbelt use: always Drive intox or ride w/intox tank truck driver: No Do you feel safe at home: Yes Do you feel safe in your relationship?: Yes Readmission Within the Past 30 Days Yes or No: No
[2024-12-06] MEDS: buPROPion-XL 150 MG TABCR 450 MG PO (10:34)
[2024-12-06 11:08] VITALS: BP 139/86; PULSE 73; RESP 18; TEMP 36.9; O2SAT 98
--- NOTE | 2024-12-06 11:38 | PHA.REVIEW2 ---
Pharmacy Admission Review Admission Clinical Review Admission Pharmacy Review: Hyperlipidemia (Acute 12/08/14) Mild cognitive impairment (Acute) Diarrhea (Acute) LUIS ALBERTO (acute kidney injury) (Acute) No Known Allergies Allergy (Verified 12/05/24 02:26) Resuscitation Status Full Code Height 6 ft 1 in Weight 125.6 kg Comments Comments/Follow Ups: Follow up on home med questions Pharmacy Admission Review Renal Dosing Renal Dosing: BUN 14 mg/dL (7-18) 12/06/24 06:50 Creatinine 1.0 mg/dL (0.70-1.30) 12/06/24 06:50 Medications needing adjustments: Reviewed (CrCl 88.6 mL/min, Scr decreased from 1.6) List of meds needing interventions: Current medications are okay Anticoagulation Anticoagulation: Hgb 14.7 g/dL (13.5-17.5) D 12/06/24 06:50 Hct 44.2 % (40.0-50.0) 12/06/24 06:50 Plt Count 185 10^3/uL (130-400) 12/06/24 06:50 Creatinine 1.0 mg/dL (0.70-1.30) 12/06/24 06:50 DVT Prophylaxis: Reviewed (Hgb decreased from 17.1) Medications: Enoxaparin (40mg daily) Relevant Labs Relevant Labs: Sodium 145 mmol/L (136-145) 12/06/24 06:50 Potassium 3.8 mmol/L (3.5-5.1) 12/06/24 06:50 Chloride 110 mmol/L (98-107) H 12/06/24 06:50 Magnesium 2.2 mg/dL 12/05/24 02:34 Electrolytes, C-Reactive P, ESR: Reviewed (WBC decreased from 14.3 to 7.45) Cardiac Review Cardiac Review: Troponin I 4 ng/L (<or=76) 12/05/24 02:34 BP, HR, EF%: Reviewed (BP and HR WNL) QTc Review QTc: Reviewed (481 from 12/05/24) IV to PO Switch IV Medications: Reviewed Home Meds Home Med List reviewed: Intervened Relevent Home Meds Not ordered & why?: docusate (PRN), donepezil, ibuprofen (PRN), meloxicam and polyethylene glycol (PRN) Spoke with provider regarding missing home meds donepezil and meloxicam. Provider is looking into it, waiting to hear back. Current Meds Current Medication Order Review: Intervened Comments: Changed bupropion order from non-formulary to bupropion XL 150mg tablets (dose 450mg daily) Comments Comments/Follow Ups: Follow up on home med questions
--- NOTE | 2024-12-06 13:42 | DSE_ITS ---
Date of service: 12/06/24 Time of Service: 13:42 DS: Diagnosis Discharge Diagnosis (1) LUIS ALBERTO (acute kidney injury): Status: Resolved (2) Diarrhea: Status: Resolved (3) Hypothyroidism: Status: Chronic (4) Mild cognitive impairment: Status: Chronic (5) Depressive disorder: Status: Chronic (6) Hyperlipidemia: Status: Chronic Discharge Plan Disposition Patient Disposition: Home Condition: Improving Discharge Details Reason For Visit: Colitis, LUIS ALBERTO Admit Date/Time: 12/05/24 08:15 Admit Provider: Erik Rush Attending Provider: Erik Rush Primary Care Provider: [facility] Course: This 74-year-old male with a past medical history of Crohn's disease and irritable bowel syndrome (IBS) presented to the emergency department with exacerbated diarrhea. He reports that he typically experiences bouts of diarrhea, but this episode is more severe than usual. He denies any vomiting, blood in the stool, or black, tarry stools. He has had a few days of diarrhea, with increased foul-smelling stool compared to his baseline, and mild abdominal discomfort around the umbilicus. The patient experienced a fall from bed while attempting to get up due to fecal urgency. His had difficulty helping him, and they called 911. Upon arrival in the emergency department, basic labs and a CT scan were performed. The CT scan revealed a distended gallbladder but no signs of acute cholecystitis, colitis, or bowel obstruction. Mild acute kidney injury and leukocytosis were noted, likely secondary to dehydration from the prolonged diarrhea. A surgical consult was obtained, and the gallbladder was found to be distended but with no signs of inflammation or infection (e.g., pericholecystic fluid, abnormal liver function tests). Given the patient's history of severe diarrhea and dehydration, the distended gallbladder was attributed to the enteritis and lack of oral intake. The patient was treated with IV hydration, observed for improvement, and a gallbladder ultrasound was planned for the following morning to further evaluate the gallbladder. The patient was also given full liquids and allowed to advance his diet as tolerated. Infectious diarrhea workup was considered but deemed less likely given the patient's risk factors. Assessment and Plan: * Severe Enteritis (acute): * Likely exacerbation of Crohn's disease or IBS, causing severe diarrhea. * Patient continued IV hydration and was monitored for improvement. * Stool samples were sent for infectious diarrhea testing (C. difficile negative, Salmonella, shigella and campylobacter pending). * Gradually advanced diet, and tolerated a regular solid diet. * If diarrhea persists, further management may be needed. * Dehydration with Acute Kidney Injury (LUIS ALBERTO): * Likely secondary to prolonged diarrhea. * Continued IV hydration with reassessment of kidney function. * Distended Gallbladder: * No acute cholecystitis or biliary obstruction noted on CT scan. * Monitor for any signs of gallbladder pathology. * Recommend reassurance that this is likely secondary to enteritis rather than acute cholecystitis. * Abdominal ultra sound - Single mobile gallstone. No evidence of wall thickening or biliary dilatation. * Fecal Urgency and Fall: * Likely related to the severity of the diarrhea and the patient?s age. * Reinforce fall precautions and assess for any potential risk factors for further falls. * Chronic Diarrhea (Crohn's/IBS): * Given the patient's history, continued to monitor for flare-ups of Crohn's disease or IBS. * Encourage proper hydration and diet modification. Discharge Condition: The patient is stable at discharge, with improvement in his hydration status. His vital signs have normalized, and his diarrhea has started to improve with IV fluids and symptomatic management. C. difficile negative, Salmonella, shigella and campylobacter pending. His kidney function improved, creatinine improved from 1.6 to 1.0 and he is tolerating solid food. WBC improved from 14.30 to 7.45. The patient was discharged home with his spouse, in stable condition. He was advised to advance his diet as tolerated, starting with the BRAT diet. The patient was instructed to hold Miralax and Dulcolax until his bowel movements returned to normal. Probiotics were recommended. The patient should follow up with his primary care physician and surgery. He expressed interest in having a colonoscopy, believing it is due and would provide peace of mind, this was relayed to surgery. Patient and spouse agree with discharge paln. Patient was told to return to the emergency department if Discharge Instructions: * Medications: * Continue any prescribed medications for Crohn's disease and IBS as directed. * Follow-up as necessary for new medications related to his condition. * Diet: * Full liquids to start, advancing to a regular diet as tolerated. * Encourage adequate hydration to prevent further dehydration. * Activity: * Rest as needed, and fall precautions should be followed. * Limit activity until fully recovered. * Follow-up: * Primary care physician (PCP): Follow-up to monitor ongoing management of Crohn's and IBS. * GI Specialist: Follow-up for continued management of his chronic diarrhea and related conditions. * Urology: If indicated, follow-up for any kidney concerns. * Signs to Watch For: * Worsening abdominal pain, fever, vomiting, or increased diarrhea. * Signs of dehydration: dry mouth, decreased urine output, or dizziness. * New or worsening chest pain or shortness of breath. Home Meds and New Rx's Prescriptions: Continued fexofenadine [Allergy Relief (fexofenadine)] 180 mg tablet 180 mg PO DAILY escitalopram oxalate 20 mg tablet 20 mg PO DAILY donepezil 10 mg tablet 10 mg PO DAILY Qty: 90 3RF memantine 10 mg tablet 10 mg PO BID Qty: 180 3RF carboxymethylcellulose sodium 0.25 % dropperette 1 drp ophthalmic (eye) BID trazodone 100 MG tablet 300 mg PO HS fluticasone propionate 16 GM spray,suspension 50 mcg NS DAILY PRN bupropion HCl 300 mg tablet extended release 24 hr 450 mg PO DAILY simvastatin 20 mg tablet 20 mg PO HS liothyronine 5 MCG tablet 25 mcg PO DAILY Qty: 0 0RF Patient Comments: 12/02/16: Pt takes 2 tabs daily. -BR meloxicam 15 mg Tablet 15 mg PO DAILY ibuprofen 600 mg tablet 600 mg PO TID PRN (Reason: pain) Qty: 30 0RF acetaminophen 500 mg capsule 1,000 mg PO Q8H PRN PRNQty: 90 0RF Held docusate sodium 100 mg capsule 100 mg PO BID Hold Instructions: Resume on 12/20/24. Hold until resumption of normal bowel movements. polyethylene glycol 3350 [Miralax] 17 gram/dose powder 17 g PO DAILY PRN Hold Instructions: Resume on 12/20/24. Hold until resumption of normal bowel movements Discharge Instructions Instructions: Viral gastroenteritis in adults, Arnold Diet, Diarrhea, Adult ED Additional Instructions: 1. Hydration * Replenish fluids: Diarrhea can lead to dehydration, so it's crucial to replace lost fluids. Drink clear fluids like water, oral rehydration solutions, broths, or clear juices. Avoid caffeinated, alcoholic, and sugary drinks. * Electrolyte balance: Consider drinking electrolyte solutions (such as Pedialyte or similar) or eating foods that help replenish electrolytes (bananas, potatoes, etc.). 2. Dietary Recommendations * Follow the BRAT diet: Eat bland foods such as bananas, rice, applesauce, and toast as they are easy on the stomach. * Avoid certain foods: Steer clear of spicy foods, dairy, fatty foods, and high- fiber foods until symptoms improve. * Small, frequent meals: Try eating small amounts of food every few hours rather than large meals. 3. Rest * Get plenty of rest: Allow your body to recover and regain strength by getting adequate sleep and avoiding strenuous activity. 4. Medications * Anti-diarrheal medication: Try neyx-yct-tvdbsci medications like loperamide (Imodium) 5. When to Seek Medical Attention * Signs of dehydration: If you experience excessive thirst, dark urine, dry mouth, dizziness, or decreased urine output, contact your healthcare provider immediately. * Blood in stool: If there is blood or black tarry stools, it may indicate a more serious issue and requires medical attention. * Severe abdominal pain: If you experience intense pain or cramping in your abdomen, seek medical help. * Fever: If your temperature exceeds 101.5?F (38.6?C) or you develop a high fever, contact your healthcare provider. * Symptoms lasting more than 48 hours: If diarrhea persists for more than two days or worsens, call your healthcare provider. 6. Follow-Up Appointment * A follow-up appointment was scheduled with your doctor to monitor your recov jenny and discuss any further treatments if symptoms persist. 7. Prevention of Future Episodes * Practice good hygiene: Wash hands frequently with soap and water, especially before eating or preparing food. * Food safety: Ensure food is cooked properly and stored at safe temperatures. Avoid undercooked meats, unpasteurized dairy products, and contaminated water. * Avoid contact with others: If you have an infectious cause of diarrhea, try to limit contact with others to prevent spreading the illness. Stand Alone Forms: Nursing Discharge Form Referrals: Roberta Purdy NP [Primary Care Provider] - 12/13/24 9:20 am (1 week post hospitalization visit) [place] MD [ [facility] STAFF PHYSICIAN] - (Post hospitalization diarrhea, cholelithiasis; patient would like colonoscopy - said he is due. The surgical office will call you to schedule an appointment, if you do not hear from them please call. ) Activity:: Activity as Tolerated Equipment/Supplies:: No Equipment Needed Diet:: Arnold, advance as tolerated Discharge Orders Discharge Orders: Discharge Order (Routine); Ordered 12/06/24 Ordered By: Beth Myers Discharge Data Discharge Date/Time-TO BE ENTERED AT DEPARTURE: 12/06/24 15:17 DS: Summary Time Spent with Patient providing and/or coordinating discharge services: Greater than 30 minutes Status at Discharge Functional status at discharge: independent ambulation Overall status at discharge: patient is progressing back to baseline Mental Status: mental status grossly normal Speech and Movement: speech and movement normal Mood: congruent mood Affect: normal affect Quality:SDOH Health Related Social Needs: Health related social needs food insecurity (Z59.41), feeling lonely/isolated (Z60.8) Exam Const General: cooperative, comfortable and no acute distress Nutritional Appearance: obese Orientation: alert, awake and oriented x3 HENMT Head: normal to inspection and normocephalic Eyes General: appearance normal, both eyes and all related structures Neck Neck: normal visual inspection, full ROM and no lymphadenopathy Resp Effort & Inspection: normal respiratory effort and able to speak in complete sentences Auscultation: clear to auscultation bilaterally Cardio Rate: regular rate Rhythm: regular rhythm Heart Sounds: S1 normal and S2 normal GI Inspection: normal to inspection and non-distended Palpation: soft, no guarding and nontender Percussion: normal to percussion Auscultation: hyperactive bowel sounds Psych Mental Status: mental status grossly normal Speech and Movement: speech and movement normal Mood: congruent mood Affect: normal affect DS: Data Vitals/I&O Vitals and I&O: Vital Signs Temperature 36.9 C 12/06/24 11:08 Temperature Source Temporal Artery Scan 12/06/24 11:08 Pulse 73 12/06/24 11:08 Pulse Rhythm Regular 12/05/24 11:03 Pulse 66 12/05/24 09:30 Respiratory Rate 18 12/06/24 11:08 Respiratory Effort Normal 12/05/24 11:03 Respiratory Depth Normal 12/05/24 11:03 Respiratory Pattern Normal 12/05/24 11:03 Blood Pressure 139/86 12/06/24 11:08 Blood Pressure Mean 75 12/05/24 09:01 Blood Pressure Position Supine 12/05/24 02:26 Pulse Oximetry 98 12/06/24 11:08 Oxygen Delivery Method Room Air 12/06/24 11:08 Oxygen Flow Rate 0 12/06/24 11:08 Pain Level 3 12/06/24 07:56 Comment pain in lower abdomen 12/06/24 04:45 Comment sleeping 12/05/24 07:00 Intake & Output 12/05/24 12/06/24 12/06/24 23:59 11:59 23:59 Intake Total 1889.583 / 2939.583 1110.417 / 1110.417 Output Total 300 / 300 750 / 1050 300 / 1050 Balance 1589.583 / 2639.583 360.417 / 60.417 -300 / 60.417 Weight 125.6 kg Intake: IV 1439.583 / 2489.583 1110.417 / 1110.417 Oral 450 / 450 Output: Urine 300 / 300 750 / 1050 300 / 1050 Other: Urine Color Yellow Yellow Urine Appearance Clear Clear Clear Urine Odor None None Stool Size Small Stool Characteristics Liquid Brown Data Completed and Pending Labs on day of discharge: Labs from last 24 hours 12/06/24 12/06/24 12/06/24 13:00 12:30 06:50 WBC 7.45 RBC 5.19 Hgb 14.7 D Hct 44.2 MCV 85 MCH 28.3 MCHC 33.3 RDW 12.9 Plt Count 185 MPV 9.8 Immature Gran % 0.4 Neutrophils % 48.9 Lymphocytes % 35.2 Monocytes % 10.1 Eosinophils % 4.7 Basophils % 0.7 Nucleated RBC % 0.0 Absolute Neutrophils 3.65 Absolute Lymphocytes 2.62 Absolute Monocytes 0.75 Absolute Eosinophils 0.35 Absolute Basophils 0.05 Sodium 145 Potassium 3.8 Chloride 110 H Carbon Dioxide 27.4 Anion Gap 7.6 BUN 14 Creatinine 1.0 Est GFR (CKD-EPI 2020) 78.49 Glucose 111 H Calcium 8.6 Stool Campylobacter PCR Pending Cancelled Stl C.difficile Tox PCR Pending Stool Salmonella PCR Pending Cancelled Stool Shigella PCR Pending Cancelled Shiga Toxin (PCR) Pending Cancelled PFSH All Active Problems (Updated 12/06/24 @ 13:42 by Beth Myers NP) Hyperlipidemia (Chronic 12/08/14) Mild cognitive impairment (Chronic) Hypothyroidism (Chronic) Acute dehydration (Acute) Right rotator cuff tendonitis (Acute) Cubital tunnel syndrome on right (Acute 03/16/18) Allergic rhinitis (Acute 11/09/14) Gait disorder (Chronic) Tubular adenoma of colon (Chronic) Glucose intolerance (Acute) Memory loss (Chronic) Depressive disorder (Chronic 11/09/14) Orthostatic hypotension (Acute 01/28/18) Peripheral polyneuropathy (Chronic 01/28/18) Osteoarthritis (Chronic) Medical History Obstructive sleep apnea (11/09/14) HAS C-PAP Obesity (11/09/14) Hyperlipidemia (12/08/14) Essential tremor (01/28/18) Chronic abdominal pain Hypothyroidism Gastric ulcer (01/31/14) EGD 12/2013 Surgical History Tonsillectomy RIGHT SHOULDER REPAIR (~05/2012) Open Carpal Tunnel release (~2007) B/L Nasal septoplasty (~2006) LEFT ANKLE SURGERY (~1987) Excision, Pilonidal Cyst (01/08/17) EYE SURGERY Tooth extraction GLAUCOMA LASER Colonoscopy - MAC (02/09/18) Colonoscopy - IV Sedation (02/09/18) 01/2016-Dr. Varela Tubular and tubulovillous adenomas BACK SURGERY (~2002) B/L ELBOW FX (~04/2013) Appendectomy Family History Mother , 93 Depression Cancer Father , 95 Heart disease Prostate cancer Brother Essential hypertension Maternal Grandfather , 75 Heart disease Paternal Grandfather Heart disease Maternal Grandmother , 60 No problems noted. 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 Pets and animals: No Sexually active: Yes Do you think of yourself as: straight/heterosexual Current gender identity: male What is your relationship status?: living with partner How often do you talk on the phone with friends or family?: three or more times per week How often do you get together with friends or relatives?: once per week How often do you attend buddhism or adventism services?: decline to answer Do you belong to any clubs or organized social groups?: no Panel score (0-1 are the most socially isolated patients): 2 What type of physical activity do you participate in: none Duration: decline to answer Frequency: decline to answer Ramona/Orthodoxy: Non uatsdin Special ramona needs: No Seatbelt use: always Drive intox or ride w/intox bulk delivery driver: No Do you feel safe at home: Yes Do you feel safe in your relationship?: Yes Time Spent with Patient Time Spent with Patient: 45-69 minutes Time was spent: preparing to see the patient(eg.review tests), ordering medications,tests, procedures, referring, communicating with other health client care specialist, indepentently interpreting results, counseling the patient and care coordination
[2024-12-06 13:52] LABS: C Diff PCR Negative (Negative); EPI 027-NAP1-B1 PRESUMPTIVE NEGATIVE
== END 2024-12-06 15:17 | disposition home or self-care (01) ==
LOC: ER 07:52 → MS 10:16
PROVIDERS: Emergency Medicine; Admitting Provider Family Medicine; Emergency Provider Emergency Medicine; PCP Nurse Practitioner Family; Responsible Provider Nurse Practitioner Family; Visit Provider Family Medicine
DX: N17.9 Acute kidney failure, unspecified; K58.0 Irritable bowel syndrome with diarrhea; E03.9 Hypothyroidism, unspecified; E78.2 Mixed hyperlipidemia; F32.A Depression, unspecified; E86.0 Dehydration; W06.XXXA Fall from bed, initial encounter; D72.829 Elevated white blood cell count, unspecified; G62.9 Polyneuropathy, unspecified; R26.9 Unspecified abnormalities of gait and mobility; I95.1 Orthostatic hypotension; G31.84 Mild cognitive impairment of uncertain or unknown etiology; R15.2 Fecal urgency; Z79.899 Other long term (current) drug therapy; Z87.891 Personal history of nicotine dependence; K80.20 Calculus of gallbladder without cholecystitis without obstruction
CPT/HCPCS: 00123; 36415; 36416; 80048; 80053; 82962; 83690; 87505; 93005; 96361; 96365; 96372; 99285; J1650; 70450; 72125; 74177; 76705; 81003; 81015; 83735; 84484; 85025; 93010; 99223; 99239; G0378; J2543; J3490